=== PATIENT | female | born 1970 | race Caucasian/White ===

== ENCOUNTER 2016-06-25 11:33 | Emergency (ER) | payer MEDICAID ==
[~2016-06-25] VITALS: Ht 157.5 cm; Wt 75.0 kg
[~2016-06-25 11:33] MED LIST: AMIT25TA9 PO; ASPI-1035 PO; GABA-531 PO; GEMF600T3 PO; LEVO50TA8 PO; LIP40 PO; LORA0.5T2 PO; LOV40 SQ; METO25TA6 PO; WARF7.5T22 PO; [UNRECOGNIZED DRUG - CODE] PO
[2016-06-25 13:59] LABS: BG BASE EXCESS -5.2 mmol/L (-2.0-2.0); BG CARBOXYHEMOGLOBIN 0.5 % (0.5-1.5); BG DEOXYHEMOGLOBIN 1.9 % (0.0-5.0); BG FRACTION INSPIRED OXYGEN 21; BG HCO3 ACT 16.9 mmol/L (22.0-26.0); BG METHEMOGLOBIN 0.2 % (0.0-1.5); BG OXYGEN SATURATION 98.1 % (92.0-98.5); BG OXYHEMOGLOBIN 97.4 % (94.0-97.0); BG PCO2 24.2 mmHg (35.0-45.0); BG PH 7.463 (7.350-7.450); BG SAMPLE SITE RIGHT BRACHIAL; BG TOTAL HEMOGLOBIN 12.1 g/dL (12.0-18.0); BG VENT MODE ROOM AIR
[2016-06-25 14:28] LABS: BASOPHILS % 0.8 % (0.0-2.0); DIFFERENTIAL COMMENT 0; EOSINOPHILS % 2.5 % (0.0-5.0); HEMATOCRIT. 35.4 % (36.0-48.0); HEMOGLOBIN. 11.6 g/dL (12.0-16.0); LYMPHOCYTES % 26.2 % (20.0-50.0); MEAN CORPUSCULAR HEMOGLOBIN 24.3 pg (28.0-32.0); MEAN CORPUSCULAR HGB CONC 32.7 g/dL (31.0-37.0); MEAN CORPUSCULAR VOLUME 74.4 fL (81.0-99.0); MEAN PLATELET VOLUME 6.9 fl (7.4-10.4); MONOCYTES % 7.9 % (2.0-8.0); NEUTROPHILS % 62.6 % (40.0-76.0); PLATELET 371 x1000/uL (130-400); RED BLOOD CELL COUNT 4.76 mill/uL (4.2-5.4); RED CELL DISTRIBUTION WIDTH 16.2 % (11.6-14.6); WHITE BLOOD COUNT 6.4 x1000/uL (4.5-11.0)
[2016-06-25 14:39] LABS: HCG SCREEN NEGATIVE
[2016-06-25 14:42] LABS: ALANINE AMINOTRANSFERASE 55 IU/L (13-61); ALBUMIN 3.3 g/dL (3.4-5.0); ANION GAP 15; CALCIUM 8.1 mg/dL (8.5-10.1); CARBON DIOXIDE 21 mEq/L (21-32); CHLORIDE 110 mEq/L (98-107); ETHANOL BLOOD < 10 mg/dL; INDEX HEMOLYSI 2 (1-3); INDEX ICTERIC 1 (1-4); INDEX LIPEMIC 1 (1-3); UREA NITROGEN BLOOD 8 mg/dL (7-21); eGFR > 60 mL/min (>60)
[2016-06-25] MEDS ORDERED: ACETAMINOPHEN WITH CODEINE 300/30MG TABLET PO ONE (14:45)
[2016-06-25 14:56] LABS: GLUCOSE URINE NEGATIVE (NEGATIVE); KETONES URINE 1+ (NEGATIVE); LEUKOCYTE ESTERASE URINE 2+ (NEGATIVE); NITRITE URINE POSITIVE (NEGATIVE); OCCULT BLOOD URINE 3+ (NEGATIVE); PROTEIN URINE 2+ (NEGATIVE); SPECIFIC GRAVITY URINE 1.008 (1.005-1.030)
[2016-06-25 14:57] LABS: CLARITY URINE TURBID (CLEAR); COLOR URINE BLOODY (YELLOW)
[2016-06-25 14:58] LABS: RBC URINE TNTC /hpf (0-2)
[2016-06-25 14:59] LABS: BACTERIA URINE 1+; SQUAMOUS EPITHELIAL CELL URINE 1+ /lpf (RARE/1+)
[2016-06-25 15:20] LABS: *AMPHETAMINES SCREEN URINE NEGATIVE (NEGATIVE); *BARBITURATES SCREEN URINE NEGATIVE (NEGATIVE); *BENZODIAZEPINES SCREEN URINE NEGATIVE (NEGATIVE); *COCAINE SCREEN URINE NEGATIVE (NEGATIVE); CANNABINOID URINE SCREEN NEGATIVE (NEGATIVE); ECSTASY MDMA SCREEN URINE NEGATIVE (NEGATIVE); METHADONE URINE SCREEN NEGATIVE (NEGATIVE); OPIATES URINE SCREEN NEGATIVE (NEGATIVE); PHENCYCLIDINE URINE SCREEN NEGATIVE (NEGATIVE)
[2016-06-25] MEDS ORDERED: CEFTRIAXONE 1 G PREMIX 50 ML IV ONE (15:30)
[2016-06-25] MEDS ORDERED: SODIUM CHLORIDE 0.9% 1,000 ML IV ONE (15:30)
[2016-06-25] MEDS ORDERED: ACETAMINOPHEN 325MG TABLET PO ONE (17:15)
[2016-06-25 17:39] VITALS: BP 106/67
== END 2016-06-25 17:49 | disposition home or self-care (01) ==
LOC: ER 14:47
DX: N30.00 Acute cystitis without hematuria (principal); R51 Headache; Z88.6 Allergy status to analgesic agent; I10 Essential (primary) hypertension; Z86.711 Personal history of pulmonary embolism; Z79.01 Long term (current) use of anticoagulants; Z98.890 Other specified postprocedural states
CPT/HCPCS: 36415; 36600; 70450; 80053; 80305; 81001; 82375; 82805; 84703; 85025; 96365; 99285; G0482; J0696; J7030; Z7610

== ENCOUNTER 2016-09-03 16:53 | Emergency (ER) | payer MEDICAID ==
[~2016-09-03] VITALS: Ht 157.5 cm; Wt 76.0 kg
[~2016-09-03 16:53] MED LIST changes: -ASPI-1035 PO; -GEMF600T3 PO; -LEVO50TA8 PO; -LOV40 SQ; +TEMA15CA PO; +TOPI50TA21 PO; +WARF5TAB73 PO; -[UNRECOGNIZED DRUG - CODE] PO
[2016-09-03] MEDS ORDERED: SODIUM CHLORIDE 0.9% 1,000 ML IV ONE (17:32)
[2016-09-03] MEDS ORDERED: HYDROCODONE/ACETAMINOPHEN 5/325MG TABLET PO ONE (17:45)
[2016-09-03 18:07] LABS: BASOPHILS % 0.7 % (0.0-2.0); EOSINOPHILS % 2.3 % (0.0-5.0); HEMATOCRIT. 34.8 % (36.0-48.0); MEAN CORPUSCULAR HEMOGLOBIN 25.2 pg (28.0-32.0); MEAN CORPUSCULAR VOLUME 73.2 fL (81.0-99.0); MEAN PLATELET VOLUME 7.5 fl (7.4-10.4); MONOCYTES % 6.1 % (2.0-8.0); NEUTROPHILS % 61.9 % (40.0-76.0); PLATELET 384 x1000/uL (130-400); RED BLOOD CELL COUNT 4.75 mill/uL (4.2-5.4); RED CELL DISTRIBUTION WIDTH 18.3 % (11.6-14.6)
[2016-09-03 18:10] LABS: INR 2.3; PROTHROMBIN TIME 24.1 sec
[2016-09-03 18:19] LABS: CARBON DIOXIDE 22 mEq/L (21-32); CHLORIDE 105 mEq/L (98-107); TROPONIN I < 0.02 ng/mL (0.00-0.04)
[2016-09-03 18:22] LABS: HCG SCREEN NEGATIVE
[2016-09-03 18:31] LABS: CLARITY URINE CLEAR (CLEAR); COLOR URINE YELLOW (YELLOW); GLUCOSE URINE NEGATIVE (NEGATIVE); KETONES URINE NEGATIVE (NEGATIVE); LEUKOCYTE ESTERASE URINE TRACE (NEGATIVE); NITRITE URINE NEGATIVE (NEGATIVE); OCCULT BLOOD URINE NEGATIVE (NEGATIVE); PH URINE 7.5 (4.5-8.0); PROTEIN URINE NEGATIVE (NEGATIVE); SPECIFIC GRAVITY URINE 1.004 (1.005-1.030); UROBILINOGEN URINE 0.2 E.U./dL (0.2-1.0)
[2016-09-03] MEDS ORDERED: LORAZEPAM 2MG/ML CPJ IV ONE (19:00)
[2016-09-03 19:36] VITALS: BP 121/82
== END 2016-09-03 19:57 | disposition home or self-care (01) ==
LOC: ER 16:53
DX: F43.0 Acute stress reaction (principal); R07.89 Other chest pain; R00.0 Tachycardia, unspecified; G35 Multiple sclerosis; G47.00 Insomnia, unspecified; Z98.890 Other specified postprocedural states; Z79.01 Long term (current) use of anticoagulants; Z98.51 Tubal ligation status; Z86.711 Personal history of pulmonary embolism; Z86.73 Personal history of transient ischemic attack (TIA), and cerebral infarction without residual deficits
CPT/HCPCS: 36415; 71010; 80053; 81001; 81025; 84484; 84703; 85025; 85610; 93005; 96374; 99285; J2060; J7030; Z7610

== ENCOUNTER 2016-09-21 22:45 | Emergency (ER) | payer MEDICAID ==
[~2016-09-21] VITALS: Ht 157.5 cm; Wt 75.0 kg
[2016-09-21 22:56] VITALS: BP 143/78
== END 2016-09-21 23:53 | disposition left against medical advice (07) ==
LOC: ER 22:45
DX: R07.9 Chest pain, unspecified (principal); Z53.21 Procedure and treatment not carried out due to patient leaving prior to being seen by health care provider

== ENCOUNTER 2016-10-01 19:43 | Inpatient (IN) | payer MEDICAID ==
[~2016-10-01] VITALS: Ht 157.5 cm; Wt 77.1 kg
[~2016-10-01 19:43] MED LIST changes: +IOHEXOL-350 100 ML BOTTLE ONE; +SODIUM CHLORIDE 0.9% 10ML VIAL ONE
[2016-10-01] MEDS ORDERED: KETOROLAC 30MG/ML VIAL IV STA (20:43)
[2016-10-01] MEDS ORDERED: ACETAMINOPHEN WITH CODEINE 300/30MG TABLET PO ONE (21:15)
[2016-10-01 21:31] LABS: BASOPHILS % 0.7 % (0.0-2.0); HEMATOCRIT. 27.8 % (36.0-48.0); HEMOGLOBIN. 8.9 g/dL (12.0-16.0); LYMPHOCYTES % 32.3 % (20.0-50.0); MEAN CORPUSCULAR HEMOGLOBIN 22.8 pg (28.0-32.0); MEAN CORPUSCULAR VOLUME 71.1 fL (81.0-99.0); MEAN PLATELET VOLUME 6.7 fl (7.4-10.4); MONOCYTES % 10.4 % (2.0-8.0); NEUTROPHILS % 53.6 % (40.0-76.0); PLATELET 398 x1000/uL (130-400); RED BLOOD CELL COUNT 3.91 mill/uL (4.2-5.4); RED CELL DISTRIBUTION WIDTH 16.8 % (11.6-14.6)
[2016-10-01 21:36] LABS: INR 1.6; PROTHROMBIN TIME 17.1 sec
[2016-10-01 21:39] LABS: CARBON DIOXIDE 21 mEq/L (21-32); CHLORIDE 110 mEq/L (98-107)
[2016-10-01 21:42] LABS: TROPONIN I < 0.02 ng/mL (0.00-0.04)
[2016-10-01 22:52] LABS: HCG SCREEN NEGATIVE
[2016-10-01] MEDS ORDERED: ENOXAPARIN 80MG/0.8ML SYR SUBCUT ONE (23:15)
[2016-10-01] MEDS ORDERED: MORPHINE SULFATE 4 MG/ML CPJ (NOT FOR IM USE) IV ONE (23:15)
[2016-10-01] MEDS ORDERED: SODIUM CHLORIDE 0.9% 1,000 ML IV ONE (23:38)
[2016-10-02] MEDS ORDERED: ASPIRIN 325MG EC TABLET PO ONE (01:00)
[2016-10-02] MEDS ORDERED: DIPHENHYDRAMINE 50MG CAPSULE PO ONE (01:15)
[2016-10-02] MEDS ORDERED: DEXTROSE 50% WATER 50ML SYRINGE IV PRN (04:45)
[2016-10-02] MEDS: MORPHINE SULFATE 4 MG/ML CPJ (NOT FOR IM USE) IV PRN ×3 (04:58→22:18)
[2016-10-02] MEDS: ONDANSETRON HCL 4MG/2ML VIAL IV PRN ×3 (04:58→20:29)
[2016-10-02 06:00] LABS: BASOPHILS % 0.7 % (0.0-2.0); EOSINOPHILS % 4.4 % (0.0-5.0); HEMATOCRIT. 25.7 % (36.0-48.0); HEMOGLOBIN. 8.5 g/dL (12.0-16.0); LYMPHOCYTES % 47.7 % (20.0-50.0); MEAN CORPUSCULAR HEMOGLOBIN 23.6 pg (28.0-32.0); MEAN CORPUSCULAR VOLUME 71.4 fL (81.0-99.0); MEAN PLATELET VOLUME 6.9 fl (7.4-10.4); MONOCYTES % 9.1 % (2.0-8.0); NEUTROPHILS % 38.1 % (40.0-76.0); PLATELET 397 x1000/uL (130-400); RED BLOOD CELL COUNT 3.61 mill/uL (4.2-5.4)
[2016-10-02 06:07] LABS: CREATINE KINASE 77 IU/L (26-192); TROPONIN I < 0.02 ng/mL (0.00-0.04)
[2016-10-02] MEDS: INSULIN LISPRO 100 UNITS/ML SUBCUT SCH ×4 (08:20→20:44)
[2016-10-02] MEDS: BLOOD SUGAR DIAGNOSTIC STRIP TEST SCH ×3 (09:00→20:44)
[2016-10-02 12:50] VITALS: BP 108/73
[2016-10-02 14:00] VITALS: BP 130/75
[2016-10-02 16:00] VITALS: BP 121/71
[2016-10-02 16:03] LABS: CREATINE KINASE 74 IU/L (26-192); CREATINE KINASE MB FRACTION 0.8 ng/mL (0.5-3.6); TROPONIN I < 0.02 ng/mL (0.00-0.04)
[2016-10-02] MEDS ORDERED: WARFARIN SODIUM 7.5MG TABLET PO NR (18:00)
[2016-10-02 20:00] VITALS: BP 97/64
[2016-10-02] MEDS ORDERED: TRAMADOL 50MG TABLET PO PRN (21:00)
[2016-10-02] MEDS ORDERED: POTASSIUM CHLORIDE 20MEQ TABLET SR PO NR (21:00)
[2016-10-02] MEDS ORDERED: DIVA500T PO (22:30)
[2016-10-02] MEDS ORDERED: ATORVASTATIN CALCIUM 40MG TABLET PO SCH (22:45)
[2016-10-02] MEDS: GABAPENTIN 300MG CAPSULE PO SCH (23:28)
[2016-10-02] MEDS: DIVALPROEX SODIUM 500MG DR TABLET PO SCH (23:29)
[2016-10-02] MEDS: TOPIRAMATE 25MG TABLET PO SCH (23:35)
[2016-10-03] VITALS (7 sets, daily range): BP systolic 92–128; BP diastolic 49–82
[2016-10-03 06:16] LABS: INR 1.7; PROTHROMBIN TIME 18.3 sec
[2016-10-03] MEDS: BLOOD SUGAR DIAGNOSTIC STRIP TEST SCH ×2 (07:11→12:19)
[2016-10-03] MEDS: INSULIN LISPRO 100 UNITS/ML SUBCUT SCH ×2 (07:58→12:19)
[2016-10-03] MEDS: GABAPENTIN 300MG CAPSULE PO SCH ×2 (08:25→17:14)
[2016-10-03] MEDS: TOPIRAMATE 25MG TABLET PO SCH (08:25)
[2016-10-03] MEDS: DIVALPROEX SODIUM 500MG DR TABLET PO SCH ×2 (08:25→17:14)
[2016-10-03] MEDS: MORPHINE SULFATE 4 MG/ML CPJ (NOT FOR IM USE) IV PRN ×2 (09:41→15:31)
[2016-10-03] MEDS: ONDANSETRON HCL 4MG/2ML VIAL IV PRN (09:50)
[2016-10-03] MEDS ORDERED: WARFARIN SODIUM 5MG TABLET PO SCH (18:00)
[2016-10-03] MEDS ORDERED: AMITRIPTYLINE 25MG TABLET PO SCH (21:00)
[2016-10-03] MEDS ORDERED: TEMAZEPAM 15MG CAPSULE PO SCH (21:00)
== END 2016-10-03 18:10 | disposition home or self-care (01) | DRG 203 ==
LOC: ER 19:43 → EDBEDREQ 10-02 01:47 → EDBEDREQTM 10-02 01:47 → 7WST 10-02 01:49 → EDBEDREQ 10-02 01:53 → ENRESERV 10-02 12:07
PROVIDERS: ADMIT Hospitalist; ATTEND Hospitalist
DX: R07.89 Other chest pain (principal); I10 Essential (primary) hypertension; E11.9 Type 2 diabetes mellitus without complications; E78.5 Hyperlipidemia, unspecified; Z86.711 Personal history of pulmonary embolism; Z88.6 Allergy status to analgesic agent; Z98.51 Tubal ligation status
CPT/HCPCS: 36415; 70450; 71010; 80053; 80061; 82550; 82553; 82962; 83880; 84484; 84703; 85025; 85610; 93005; 96361; 96372; 96374; 99285; A4216; J1650; J1885; J2270; J2405; J7030; Q0163; Q9967

== ENCOUNTER 2016-10-23 18:22 | Emergency (ER) | payer MEDICAID ==
[~2016-10-23] VITALS: Ht 157.5 cm; Wt 76.0 kg
[~2016-10-23 18:22] MED LIST changes: +DIVA500T PO; -IOHEXOL-350 100 ML BOTTLE ONE; -SODIUM CHLORIDE 0.9% 10ML VIAL ONE
[2016-10-23 19:11] LABS: BASOPHILS % 0.7 % (0.0-2.0); EOSINOPHILS % 2.7 % (0.0-5.0); HEMATOCRIT. 29.5 % (36.0-48.0); HEMOGLOBIN. 9.4 g/dL (12.0-16.0); MEAN CORPUSCULAR HEMOGLOBIN 21.9 pg (28.0-32.0); MEAN CORPUSCULAR VOLUME 68.9 fL (81.0-99.0); MONOCYTES % 7.4 % (2.0-8.0); NEUTROPHILS % 54.2 % (40.0-76.0); PLATELET 425 x1000/uL (130-400); RED BLOOD CELL COUNT 4.28 mill/uL (4.2-5.4); RED CELL DISTRIBUTION WIDTH 16.6 % (11.6-14.6)
[2016-10-23 19:15] LABS: CHLORIDE 109 mEq/L (98-107); INR 2.7; PARTIAL THROMBOPLASTIN TIME 36.4 sec (24.0-34.0); PROTHROMBIN TIME 28.1 sec
[2016-10-23 19:21] LABS: CARBON DIOXIDE 20 mEq/L (21-32)
[2016-10-23 19:24] LABS: TROPONIN I < 0.02 ng/mL (0.00-0.04)
[2016-10-23 19:26] LABS: PLATELET ESTIMATE SLIGHTLY INCREASED
[2016-10-23] MEDS ORDERED: SODIUM CHLORIDE 0.9% 1,000 ML IV ONE (20:39)
[2016-10-23] MEDS ORDERED: ACETAMINOPHEN 325MG TABLET PO ONE (20:45)
[2016-10-23 21:09] LABS: UCG SCREEN NEGATIVE
[2016-10-23 21:19] LABS: *AMPHETAMINES SCREEN URINE NEGATIVE (NEGATIVE); *BARBITURATES SCREEN URINE NEGATIVE (NEGATIVE); *BENZODIAZEPINES SCREEN URINE NEGATIVE (NEGATIVE); *COCAINE SCREEN URINE NEGATIVE (NEGATIVE); CANNABINOID URINE SCREEN NEGATIVE (NEGATIVE); METHADONE URINE SCREEN NEGATIVE (NEGATIVE); PHENCYCLIDINE URINE SCREEN NEGATIVE (NEGATIVE)
[2016-10-23 21:28] LABS: OPIATES URINE SCREEN PRESUMTIVE POSITIVE (NEGATIVE)
[2016-10-24 01:00] VITALS: BP 142/60
== END 2016-10-24 01:15 | disposition home or self-care (01) ==
LOC: ER 21:16
DX: R51 Headache (principal); R00.2 Palpitations; G35 Multiple sclerosis; I10 Essential (primary) hypertension; E11.9 Type 2 diabetes mellitus without complications; Z98.51 Tubal ligation status; Z88.8 Allergy status to other drugs, medicaments and biological substances; Z86.711 Personal history of pulmonary embolism; Z79.01 Long term (current) use of anticoagulants
CPT/HCPCS: 36415; 70450; 71010; 80053; 80305; 81025; 83690; 84484; 85025; 85610; 85730; 93005; 96360; 96361; 99285; J7030

== ENCOUNTER 2016-11-25 18:30 | Emergency (ER) | payer MEDICAID ==
[~2016-11-25] VITALS: Ht 157.5 cm; Wt 75.0 kg
[~2016-11-25 18:30] MED LIST changes: -TOPI50TA21 PO; +TOPI50TA24 PO
[2016-11-25 19:03] VITALS: BP 113/68
[2017-01-22] MEDS ORDERED: WARF5TAB73 PO (05:52)
== END 2016-11-25 20:45 | disposition left against medical advice (07) ==
LOC: ER 18:30
DX: R00.2 Palpitations (principal); Z53.21 Procedure and treatment not carried out due to patient leaving prior to being seen by health care provider
CPT/HCPCS: 93005

== ENCOUNTER 2016-11-27 18:13 | Inpatient (IN) | payer MEDICAID ==
[~2016-11-27] VITALS: Ht 157.5 cm; Wt 79.4 kg
[2016-11-27] MEDS ORDERED: METO100T5 PO (18:25)
[2016-11-27] MEDS ORDERED: MORPHINE SULFATE 4 MG/ML CPJ (NOT FOR IM USE) IV ONE (19:45)
[2016-11-27 20:05] LABS: BG CARBOXYHEMOGLOBIN 0.1 % (0.5-1.5); BG DEOXYHEMOGLOBIN 3.3 % (0.0-5.0); BG FRACTION INSPIRED OXYGEN 21; BG HCO3 ACT 19.5 mmol/L (22.0-26.0); BG METHEMOGLOBIN 0.3 % (0.0-1.5); BG OXYGEN SATURATION 96.7 % (92.0-98.5); BG OXYHEMOGLOBIN 96.3 % (94.0-97.0); BG PCO2 29.9 mmHg (35.0-45.0); BG PH 7.433 (7.350-7.450); BG PO2 90.6 mmHg (75.0-100.0); BG SAMPLE SITE RIGHT RADIAL; BG VENT MODE ROOM AIR
[2016-11-27 20:29] LABS: EOSINOPHILS % 2.9 % (0.0-5.0); HEMATOCRIT. 26.9 % (36.0-48.0); HEMOGLOBIN. 8.4 g/dL (12.0-16.0); LYMPHOCYTES % 34.8 % (20.0-50.0); MEAN CORPUSCULAR HEMOGLOBIN 20.7 pg (28.0-32.0); MEAN CORPUSCULAR VOLUME 65.9 fL (81.0-99.0); MEAN PLATELET VOLUME 7.4 fl (7.4-10.4); NEUTROPHILS % 51.3 % (40.0-76.0); PLATELET 397 x1000/uL (130-400); RED BLOOD CELL COUNT 4.08 mill/uL (4.2-5.4); RED CELL DISTRIBUTION WIDTH 18.5 % (11.6-14.6)
[2016-11-27 20:30] LABS: CHLORIDE 108 mEq/L (98-107)
[2016-11-27] MEDS ORDERED: ONDANSETRON HCL 4MG/2ML VIAL IV ONE (20:30)
[2016-11-27 20:35] LABS: D-DIMER < 0.19 mg/L FEU (<0.50); INR 1.9; PROTHROMBIN TIME 20.1 sec (9.4-11.6)
[2016-11-27 20:36] LABS: CARBON DIOXIDE 22 mEq/L (21-32)
[2016-11-27 20:42] LABS: TROPONIN I < 0.02 ng/mL (0.00-0.04)
[2016-11-27] MEDS ORDERED: ASPIRIN 325MG EC TABLET PO ONE (21:00)
[2016-11-27 21:25] LABS: PLATELET ESTIMATE NORMAL
[2016-11-27 23:00] VITALS: BP 124/76
[2016-11-27 23:30] VITALS: BP 124/76
[2016-11-27] MEDS ORDERED: ACET-2178 PO (23:44)
[2016-11-28] MEDS: METOPROLOL TARTRATE 25MG TABLET PO SCH ×3 (00:15→18:23)
[2016-11-28] MEDS ORDERED: MAGNESIUM/ALUMINUM HYDROXIDE/SIMETHICONE 30ML UDC PO PRN (00:15)
[2016-11-28] MEDS ORDERED: MORPHINE SULFATE 2 MG/ML CPJ (NOT FOR IM USE) IV PRN (00:15)
[2016-11-28] MEDS ORDERED: ACETAMINOPHEN 325MG TABLET PO PRN (00:15)
[2016-11-28] MEDS ORDERED: CLONIDINE 0.1MG TABLET PO PRN (00:15)
[2016-11-28] MEDS ORDERED: LORAZEPAM 1MG TABLET PO PRN (00:15)
[2016-11-28] MEDS ORDERED: DEXTROSE 50% WATER 50ML SYRINGE IV PRN (00:15)
[2016-11-28] MEDS ORDERED: DOCUSATE SODIUM 100MG CAPSULE PO PRN (00:15)
[2016-11-28] MEDS: MORPHINE SULFATE 2 MG/ML CPJ (NOT FOR IM USE) IV PRN ×5 (00:34→20:28)
[2016-11-28] MEDS: ONDANSETRON HCL 4MG/2ML VIAL IV PRN ×2 (01:10→10:50)
[2016-11-28] MEDS: ATORVASTATIN CALCIUM 40MG TABLET PO SCH ×2 (01:11→20:19)
[2016-11-28] MEDS: TEMAZEPAM 15MG CAPSULE PO SCH ×2 (01:15→21:00)
[2016-11-28 04:00] VITALS: BP 108/67
[2016-11-28] MEDS: HYDROCODONE/ACETAMINOPHEN 10/325MG TABLET PO PRN ×2 (04:05→08:32)
[2016-11-28] MEDS: BLOOD SUGAR DIAGNOSTIC STRIP TEST SCH ×4 (06:14→20:18)
[2016-11-28] MEDS: INSULIN LISPRO 100 UNITS/ML SUBCUT SCH ×4 (06:14→20:18)
[2016-11-28 07:05] LABS: CLARITY URINE CLEAR (CLEAR); COLOR URINE YELLOW (YELLOW); GLUCOSE URINE NEGATIVE (NEGATIVE); KETONES URINE NEGATIVE (NEGATIVE); LEUKOCYTE ESTERASE URINE NEGATIVE (NEGATIVE); NITRITE URINE NEGATIVE (NEGATIVE); OCCULT BLOOD URINE NEGATIVE (NEGATIVE); PROTEIN URINE NEGATIVE (NEGATIVE); SPECIFIC GRAVITY URINE 1.013 (1.005-1.030); UROBILINOGEN URINE 0.2 E.U./dL (0.2-1.0)
[2016-11-28 07:13] LABS: *AMPHETAMINES SCREEN URINE NEGATIVE (NEGATIVE); *BARBITURATES SCREEN URINE NEGATIVE (NEGATIVE); *COCAINE SCREEN URINE NEGATIVE (NEGATIVE); CANNABINOID URINE SCREEN NEGATIVE (NEGATIVE); METHADONE URINE SCREEN NEGATIVE (NEGATIVE); PHENCYCLIDINE URINE SCREEN NEGATIVE (NEGATIVE)
[2016-11-28] MEDS ORDERED: INSULIN LISPRO 100 UNITS/ML SUBCUT SCH (07:15)
[2016-11-28 07:31] LABS: *BENZODIAZEPINES SCREEN URINE PRESUMTIVE POSITIVE (NEGATIVE); OPIATES URINE SCREEN PRESUMTIVE POSITIVE (NEGATIVE)
[2016-11-28 08:00] VITALS: BP 115/70
[2016-11-28 09:00] LABS: CREATINE KINASE 75 IU/L (26-192); TROPONIN I < 0.02 ng/mL (0.00-0.04)
[2016-11-28] MEDS: DIVALPROEX SODIUM 500MG DR TABLET PO SCH ×2 (09:09→18:23)
[2016-11-28] MEDS: GABAPENTIN 300MG CAPSULE PO SCH ×2 (09:09→18:23)
[2016-11-28 12:00] VITALS: BP 113/70
[2016-11-28 16:28] LABS: INR 2.1; PROTHROMBIN TIME 21.9 sec (9.4-11.6)
[2016-11-28 16:40] LABS: HCG SCREEN NEGATIVE
[2016-11-28 16:41] LABS: CREATINE KINASE 76 IU/L (26-192); TROPONIN I < 0.02 ng/mL (0.00-0.04)
[2016-11-28] MEDS ORDERED: WARFARIN SODIUM 5MG TABLET PO SCH (18:00)
[2016-11-28] MEDS ORDERED: WARFARIN SODIUM 5MG TABLET PO NR (18:00)
[2016-11-28 20:00] VITALS: BP 108/66
[2016-11-28] MEDS: AMITRIPTYLINE 25MG TABLET PO SCH (20:19)
[2016-11-29] VITALS: BP 100/58
[2016-11-29] MEDS: MORPHINE SULFATE 2 MG/ML CPJ (NOT FOR IM USE) IV PRN ×4 (00:45→18:25)
[2016-11-29 04:00] VITALS: BP 101/58
[2016-11-29] MEDS: METOPROLOL TARTRATE 25MG TABLET PO SCH ×2 (06:00→18:24)
[2016-11-29] MEDS: BLOOD SUGAR DIAGNOSTIC STRIP TEST SCH ×4 (06:01→20:17)
[2016-11-29] MEDS: INSULIN LISPRO 100 UNITS/ML SUBCUT SCH ×4 (06:11→20:17)
[2016-11-29 06:40] LABS: INR 2.3; PROTHROMBIN TIME 23.4 sec (9.4-11.6)
[2016-11-29 07:07] LABS: BASOPHILS % 0.7 % (0.0-2.0); EOSINOPHILS % 4.9 % (0.0-5.0); HEMATOCRIT. 26.6 % (36.0-48.0); HEMOGLOBIN. 8.3 g/dL (12.0-16.0); LYMPHOCYTES % 36.3 % (20.0-50.0); MEAN CORPUSCULAR HEMOGLOBIN 20.9 pg (28.0-32.0); MEAN CORPUSCULAR VOLUME 66.8 fL (81.0-99.0); MEAN PLATELET VOLUME 7.2 fl (7.4-10.4); MONOCYTES % 9.5 % (2.0-8.0); NEUTROPHILS % 48.6 % (40.0-76.0); PLATELET 371 x1000/uL (130-400); RED BLOOD CELL COUNT 3.99 mill/uL (4.2-5.4); RED CELL DISTRIBUTION WIDTH 18.1 % (11.6-14.6)
[2016-11-29 07:49] LABS: CARBON DIOXIDE 23 mEq/L (21-32); CHLORIDE 108 mEq/L (98-107); LDL CHOLESTEROL 107 mg/dL (5-100)
[2016-11-29 07:59] LABS: HDL CHOLESTEROL 36 mg/dL (40-59)
[2016-11-29 08:00] VITALS: BP 115/69
[2016-11-29 08:38] LABS: BG BASE EXCESS -3.5 mmol/L (-2.0-2.0); BG CARBOXYHEMOGLOBIN 0.4 % (0.5-1.5); BG FRACTION INSPIRED OXYGEN 21; BG HCO3 ACT 20.6 mmol/L (22.0-26.0); BG METHEMOGLOBIN 0.2 % (0.0-1.5); BG OXYHEMOGLOBIN 95.4 % (94.0-97.0); BG PCO2 33.7 mmHg (35.0-45.0); BG PH 7.405 (7.350-7.450); BG PO2 85.3 mmHg (75.0-100.0); BG SAMPLE SITE RIGHT RADIAL; BG TOTAL HEMOGLOBIN 9.3 g/dL (12.0-18.0); BG VENT MODE ROOM AIR
[2016-11-29] MEDS: DIVALPROEX SODIUM 500MG DR TABLET PO SCH ×2 (08:59→17:46)
[2016-11-29] MEDS: GABAPENTIN 300MG CAPSULE PO SCH ×2 (08:59→17:46)
[2016-11-29 12:00] VITALS: BP 105/70
[2016-11-29] MEDS ORDERED: METOCLOPRAMIDE HCL 10MG TABLET PO SCH (13:15)
[2016-11-29] MEDS ORDERED: DIPHENHYDRAMINE 25MG CAPSULE PO SCH (13:15)
[2016-11-29] MEDS ORDERED: INDOMETHACIN 50MG CAPSULE PO SCH (14:00)
[2016-11-29 16:00] VITALS: BP 122/70
[2016-11-29] MEDS ORDERED: WARFARIN SODIUM 7.5MG TABLET PO SCH (18:00)
[2016-11-29 20:00] VITALS: BP 105/57
[2016-11-29] MEDS: ATORVASTATIN CALCIUM 40MG TABLET PO SCH (20:12)
[2016-11-29] MEDS: TEMAZEPAM 15MG CAPSULE PO SCH (20:12)
[2016-11-29] MEDS: AMITRIPTYLINE 25MG TABLET PO SCH (20:12)
[2016-11-29] MEDS ORDERED: ATORVASTATIN CALCIUM 20MG TABLET PO SCH (21:00)
[2016-11-30] VITALS: BP 108/47
[2016-11-30] MEDS: ONDANSETRON HCL 4MG/2ML VIAL IV PRN (00:18)
[2016-11-30] MEDS: MORPHINE SULFATE 2 MG/ML CPJ (NOT FOR IM USE) IV PRN ×3 (01:15→10:10)
[2016-11-30 04:00] VITALS: BP 97/56
[2016-11-30] MEDS: METOPROLOL TARTRATE 25MG TABLET PO SCH (05:06)
[2016-11-30 05:35] LABS: INR 2.6; PROTHROMBIN TIME 26.9 sec (9.4-11.6)
[2016-11-30] MEDS: INSULIN LISPRO 100 UNITS/ML SUBCUT SCH ×2 (06:33→12:15)
[2016-11-30] MEDS: BLOOD SUGAR DIAGNOSTIC STRIP TEST SCH ×2 (06:33→12:03)
[2016-11-30 08:00] VITALS: BP 98/59
[2016-11-30] MEDS: GABAPENTIN 300MG CAPSULE PO SCH (09:37)
[2016-11-30] MEDS: DIVALPROEX SODIUM 500MG DR TABLET PO SCH (09:37)
[2016-11-30 10:48] LABS: HEMATOCRIT 27.2 % (36.0-48.0); HEMOGLOBIN 8.3 g/dL (12.0-16.0); MEAN CORPUSCULAR HEMOGLOBIN 20.4 pg (28.0-32.0); MEAN CORPUSCULAR VOLUME 66.7 fL (81.0-99.0); PLATELET 363 x1000/uL (130-400); RED BLOOD CELL COUNT 4.08 mill/uL (4.2-5.4); RED CELL DISTRIBUTION WIDTH 18.5 % (11.6-14.6)
[2016-11-30 10:59] LABS: CARBON DIOXIDE 22 mEq/L (21-32); CHLORIDE 108 mEq/L (98-107)
[2016-11-30 12:00] VITALS: BP 106/57
[2016-11-30] MEDS ORDERED: HYDROMORPHONE HCL/PF 2MG/ML CPJ IV NR (12:45)
[2016-11-30 16:00] VITALS: BP 121/75
[2016-11-30 16:05] VITALS: BP 121/75
[2017-01-22] MEDS ORDERED: WARF5TAB73 PO (05:52)
== END 2016-11-30 16:40 | disposition home or self-care (01) | DRG 203 ==
LOC: ER 21:15 → 5WST 21:16 → ENRESERV 21:29 → 5WST 23:07
PROVIDERS: ADMIT Internal Medicine; ATTEND Internal Medicine
DX: M94.0 Chondrocostal junction syndrome [Tietze] (principal); G35 Multiple sclerosis; I10 Essential (primary) hypertension; D64.9 Anemia, unspecified; E11.9 Type 2 diabetes mellitus without complications; G43.909 Migraine, unspecified, not intractable, without status migrainosus; F41.9 Anxiety disorder, unspecified; R00.2 Palpitations; I34.1 Nonrheumatic mitral (valve) prolapse; Z82.49 Family history of ischemic heart disease and other diseases of the circulatory system; Z79.01 Long term (current) use of anticoagulants; Z86.711 Personal history of pulmonary embolism; Z86.73 Personal history of transient ischemic attack (TIA), and cerebral infarction without residual deficits; Z88.8 Allergy status to other drugs, medicaments and biological substances; Z98.51 Tubal ligation status
CPT/HCPCS: 36415; 36600; 70450; 71010; 74176; 78582; 80053; 80061; 80305; 81003; 82270; 82375; 82550; 82805; 82962; 83880; 84443; 84484; 84703; 85025; 85027; 85379; 85610; 87493; 93005; 93970; 96374; 96375; 99285; A9558; J1170; J2270; J2405; J8597; Q0163

== ENCOUNTER 2016-12-09 23:00 | Emergency (ER) | payer MEDICAID ==
[~2016-12-09] VITALS: Ht 157.5 cm; Wt 75.0 kg
[~2016-12-09 23:00] MED LIST changes: +ACET-2178 PO; +METO100T5 PO; -METO25TA6 PO
[2016-12-10 00:51] LABS: BASOPHILS % 0.9 % (0.0-2.0); EOSINOPHILS % 3.4 % (0.0-5.0); HEMOGLOBIN. 8.7 g/dL (12.0-16.0); LYMPHOCYTES % 40.5 % (20.0-50.0); MEAN CORPUSCULAR HEMOGLOBIN 20.4 pg (28.0-32.0); MEAN CORPUSCULAR VOLUME 65.7 fL (81.0-99.0); MEAN PLATELET VOLUME 6.7 fl (7.4-10.4); MONOCYTES % 10.7 % (2.0-8.0); NEUTROPHILS % 44.5 % (40.0-76.0); PLATELET 474 x1000/uL (130-400); RED BLOOD CELL COUNT 4.26 mill/uL (4.2-5.4); RED CELL DISTRIBUTION WIDTH 19.3 % (11.6-14.6)
[2016-12-10 00:55] LABS: PROTHROMBIN TIME 10.7 sec (9.4-11.6)
[2016-12-10 01:00] LABS: CARBON DIOXIDE 23 mEq/L (21-32); CHLORIDE 107 mEq/L (98-107); TROPONIN I < 0.02 ng/mL (0.00-0.04)
[2016-12-10 02:25] VITALS: BP 126/75
[2016-12-10] MEDS ORDERED: ACETAMINOPHEN WITH CODEINE 300/30MG TABLET PO ONE (03:30)
[2017-01-22] MEDS ORDERED: WARF5TAB73 PO (05:52)
== END 2016-12-10 04:15 | disposition home or self-care (01) ==
LOC: ER 23:00
DX: R10.31 Right lower quadrant pain (principal); R10.32 Left lower quadrant pain; R07.89 Other chest pain; R00.2 Palpitations; R11.0 Nausea; G35 Multiple sclerosis; E11.9 Type 2 diabetes mellitus without complications; I10 Essential (primary) hypertension; Z86.73 Personal history of transient ischemic attack (TIA), and cerebral infarction without residual deficits; Z79.01 Long term (current) use of anticoagulants; Z86.711 Personal history of pulmonary embolism
CPT/HCPCS: 36415; 71010; 74176; 80053; 83690; 84484; 85025; 85610; 93005; 99285; Z7610

== ENCOUNTER 2016-12-12 18:17 | Emergency (ER) | payer MEDICAID ==
[~2016-12-12] VITALS: Ht 157.5 cm; Wt 75.0 kg
[2016-12-12 18:50] LABS: BASOPHILS % 0.5 % (0.0-2.0); EOSINOPHILS % 0.7 % (0.0-5.0); HEMATOCRIT. 24.9 % (36.0-48.0); HEMOGLOBIN. 7.9 g/dL (12.0-16.0); LYMPHOCYTES % 32.6 % (20.0-50.0); MEAN CORPUSCULAR HEMOGLOBIN 20.7 pg (28.0-32.0); MEAN CORPUSCULAR VOLUME 65.5 fL (81.0-99.0); MEAN PLATELET VOLUME 6.9 fl (7.4-10.4); NEUTROPHILS % 60.2 % (40.0-76.0); PLATELET 505 x1000/uL (130-400); RED BLOOD CELL COUNT 3.79 mill/uL (4.2-5.4); RED CELL DISTRIBUTION WIDTH 19.3 % (11.6-14.6)
[2016-12-12 19:01] LABS: HCG SCREEN NEGATIVE
[2016-12-12 19:03] LABS: CARBON DIOXIDE 22 mEq/L (21-32); CHLORIDE 111 mEq/L (98-107)
[2016-12-12 19:05] LABS: INR 1.6; PARTIAL THROMBOPLASTIN TIME 26.8 sec (23.4-31.0)
[2016-12-12 19:08] LABS: TROPONIN I < 0.02 ng/mL (0.00-0.04)
[2016-12-12 19:11] LABS: PLATELET ESTIMATE INCREASED
[2016-12-12] MEDS ORDERED: POTASSIUM CHLORIDE 20MEQ TABLET SR PO ONE (20:45)
[2016-12-12] MEDS ORDERED: LORAZEPAM 0.5MG TABLET PO ONE (21:00)
[2016-12-12] MEDS ORDERED: ACETAMINOPHEN WITH CODEINE 300/30MG TABLET PO ONE (21:00)
[2016-12-12 21:20] VITALS: BP 128/79
[2017-01-22] MEDS ORDERED: WARF5TAB73 PO (05:52)
== END 2016-12-12 21:24 | disposition home or self-care (01) ==
LOC: ER 18:31
DX: R07.9 Chest pain, unspecified (principal); R00.2 Palpitations; G89.29 Other chronic pain; F41.9 Anxiety disorder, unspecified; E87.8 Other disorders of electrolyte and fluid balance, not elsewhere classified; E11.9 Type 2 diabetes mellitus without complications; I10 Essential (primary) hypertension; Z88.6 Allergy status to analgesic agent; Z79.01 Long term (current) use of anticoagulants; Z86.73 Personal history of transient ischemic attack (TIA), and cerebral infarction without residual deficits; Z86.711 Personal history of pulmonary embolism; Z98.51 Tubal ligation status
CPT/HCPCS: 36415; 71010; 80053; 83690; 83880; 84484; 84703; 85025; 85610; 85730; 93005; 99285

== ENCOUNTER 2016-12-24 01:00 | Inpatient (IN) | payer MEDICAID ==
[~2016-12-24] VITALS: Ht 157.5 cm; Wt 77.1 kg
[2016-12-24] MEDS ORDERED: MORPHINE SULFATE 4 MG/ML CPJ (NOT FOR IM USE) IV STA (03:39)
[2016-12-24] MEDS ORDERED: SODIUM CHLORIDE 0.9% 1,000 ML IV ONE (03:39)
[2016-12-24] MEDS ORDERED: FAMOTIDINE 20MG/2ML VIAL IV STA (03:39)
[2016-12-24] MEDS ORDERED: ONDANSETRON HCL 4MG/2ML VIAL IV STA (03:39)
[2016-12-24 03:59] LABS: EOSINOPHILS % 2.4 % (0.0-5.0); HEMATOCRIT. 25.2 % (36.0-48.0); HEMOGLOBIN. 7.8 g/dL (12.0-16.0); LYMPHOCYTES % 30.3 % (20.0-50.0); MEAN CORPUSCULAR VOLUME 64.7 fL (81.0-99.0); MEAN PLATELET VOLUME 6.7 fl (7.4-10.4); MONOCYTES % 9.1 % (2.0-8.0); NEUTROPHILS % 57.2 % (40.0-76.0); PLATELET 370 x1000/uL (130-400); RED BLOOD CELL COUNT 3.89 mill/uL (4.2-5.4); RED CELL DISTRIBUTION WIDTH 19.4 % (11.6-14.6)
[2016-12-24 04:07] LABS: D-DIMER < 0.19 mg/L FEU (<0.50); INR 2.5; PROTHROMBIN TIME 25.7 sec (9.4-11.6)
[2016-12-24 04:15] LABS: CHLORIDE 111 mEq/L (98-107); HCG SCREEN INDETERMINATE; TROPONIN I < 0.02 ng/mL (0.00-0.04)
[2016-12-24 04:19] LABS: CARBON DIOXIDE 18 mEq/L (21-32)
[2016-12-24] MEDS ORDERED: ONDANSETRON HCL 4MG/2ML VIAL IV ONE (08:45)
[2016-12-24] MEDS ORDERED: METRONIDAZOLE 500 MG PREMIX 100 ML IV ONE (08:45)
[2016-12-24] MEDS ORDERED: PIPERACILLIN/TAZ 3.375G PREMIX 50 ML IV ONE (08:45)
[2016-12-24] MEDS ORDERED: MORPHINE SULFATE 4 MG/ML CPJ (NOT FOR IM USE) IV ONE (08:45)
[2016-12-24 11:20] VITALS: BP 126/66
[2016-12-24 12:00] VITALS: BP 129/66
[2016-12-24] MEDS ORDERED: METO25TA6 PO (12:53)
[2016-12-24] MEDS ORDERED: DEXT 5%/0.45% NACL KCL 10MEQ/L 1,000 ML IV SCH (15:11)
[2016-12-24] MEDS ORDERED: ACETAMINOPHEN 650MG SUPP PR PRN (15:15)
[2016-12-24] MEDS: ONDANSETRON HCL 4MG/2ML VIAL IV PRN (15:32)
[2016-12-24 16:00] VITALS: BP 119/71
[2016-12-24] MEDS ORDERED: LEVOFLOXACIN 500MG PREMIX 100 ML IV SCH (16:00)
[2016-12-24] MEDS ORDERED: DEXTROSE 50% WATER 50ML SYRINGE IV PRN (16:00)
[2016-12-24] MEDS: MORPHINE SULFATE 4 MG/ML CPJ (NOT FOR IM USE) IV PRN ×2 (16:44→22:44)
[2016-12-24] MEDS: INSULIN LISPRO 100 UNITS/ML SUBCUT SCH ×2 (16:53→21:00)
[2016-12-24] MEDS: BLOOD SUGAR DIAGNOSTIC STRIP TEST SCH ×2 (16:53→21:00)
[2016-12-24 20:00] VITALS: BP 117/77
[2016-12-24] MEDS: METRONIDAZOLE 500 MG PREMIX 100 ML IV SCH (23:42)
[2016-12-25] VITALS: BP 99/54
[2016-12-25 04:00] VITALS: BP 105/66
[2016-12-25] MEDS: METRONIDAZOLE 500 MG PREMIX 100 ML IV SCH (05:33)
[2016-12-25] MEDS: BLOOD SUGAR DIAGNOSTIC STRIP TEST SCH ×2 (05:38→11:42)
[2016-12-25] MEDS: INSULIN LISPRO 100 UNITS/ML SUBCUT SCH ×2 (05:39→11:42)
[2016-12-25 06:08] LABS: BASOPHILS % 0.7 % (0.0-2.0); EOSINOPHILS % 3.5 % (0.0-5.0); HEMATOCRIT. 24.7 % (36.0-48.0); HEMOGLOBIN. 7.9 g/dL (12.0-16.0); LYMPHOCYTES % 27.4 % (20.0-50.0); MEAN CORPUSCULAR HEMOGLOBIN 20.8 pg (28.0-32.0); MEAN CORPUSCULAR VOLUME 64.7 fL (81.0-99.0); NEUTROPHILS % 60.4 % (40.0-76.0); PLATELET 366 x1000/uL (130-400); RED BLOOD CELL COUNT 3.81 mill/uL (4.2-5.4); RED CELL DISTRIBUTION WIDTH 19.8 % (11.6-14.6)
[2016-12-25 06:50] LABS: CARBON DIOXIDE 21 mEq/L (21-32); CHLORIDE 110 mEq/L (98-107)
[2016-12-25 08:00] VITALS: BP 121/71
[2016-12-25] MEDS: ONDANSETRON HCL 4MG/2ML VIAL IV PRN (09:19)
[2016-12-25] MEDS: MORPHINE SULFATE 4 MG/ML CPJ (NOT FOR IM USE) IV PRN (09:20)
[2016-12-25 12:00] VITALS: BP 111/59
[2016-12-25 14:30] VITALS: BP 111/59
[2017-01-22] MEDS ORDERED: WARF5TAB73 PO (05:52)
== END 2016-12-25 15:30 | disposition home or self-care (01) | DRG 249 ==
LOC: ER 01:00 → 5WST 08:37 → ENRESERV 08:55
PROVIDERS: ADMIT Hospitalist; ATTEND Hospitalist
DX: K52.9 Noninfective gastroenteritis and colitis, unspecified (principal); E44.1 Mild protein-calorie malnutrition; I10 Essential (primary) hypertension; E83.51 Hypocalcemia; E11.9 Type 2 diabetes mellitus without complications; Z88.8 Allergy status to other drugs, medicaments and biological substances; Z79.899 Other long term (current) drug therapy; Z98.51 Tubal ligation status; Z82.49 Family history of ischemic heart disease and other diseases of the circulatory system
CPT/HCPCS: 36415; 71010; 74176; 80053; 82962; 83605; 83690; 83880; 84484; 84702; 84703; 85025; 85379; 85610; 86850; 86900; 86920; 87040; 93005; 93970; 96361; 96365; 96367; 96372; 96375; 99285; J1956; J2270; J2405; J2543; J3490; J7030; J7050

== ENCOUNTER 2017-01-07 19:52 | Emergency (ER) | payer MEDICAID ==
[~2017-01-07] VITALS: Ht 157.5 cm; Wt 75.0 kg
[~2017-01-07 19:52] MED LIST changes: -METO100T5 PO; +METO25TA6 PO
[2017-01-07 21:02] LABS: BASOPHILS % 0.9 % (0.0-2.0); EOSINOPHILS % 3.6 % (0.0-5.0); HEMATOCRIT. 28.1 % (36.0-48.0); LYMPHOCYTES % 36.9 % (20.0-50.0); MEAN CORPUSCULAR HEMOGLOBIN 21.1 pg (28.0-32.0); MEAN CORPUSCULAR VOLUME 65.9 fL (81.0-99.0); MEAN PLATELET VOLUME 6.6 fl (7.4-10.4); MONOCYTES % 10.3 % (2.0-8.0); NEUTROPHILS % 48.3 % (40.0-76.0); PLATELET 394 x1000/uL (130-400); RED BLOOD CELL COUNT 4.26 mill/uL (4.2-5.4); RED CELL DISTRIBUTION WIDTH 23.5 % (11.6-14.6)
[2017-01-07 21:09] LABS: INR 2.2; PROTHROMBIN TIME 23.3 sec (9.4-11.6)
[2017-01-07 21:21] LABS: CARBON DIOXIDE 21 mEq/L (21-32); CHLORIDE 109 mEq/L (98-107); ETHANOL BLOOD < 10 mg/dL; TROPONIN I < 0.02 ng/mL (0.00-0.04)
[2017-01-07] MEDS: MORPHINE SULFATE 4 MG/ML CPJ (NOT FOR IM USE) IV STA (21:31)
[2017-01-07] MEDS: SODIUM CHLORIDE 0.9% 1,000 ML IV ONE (21:32)
[2017-01-07] MEDS: ONDANSETRON HCL 4MG/2ML VIAL IV STA (21:32)
[2017-01-07] MEDS: MAGNESIUM/ALUMINUM HYDROXIDE/SIMETHICONE 30ML UDC PO ONE (21:39)
[2017-01-07] MEDS: FAMOTIDINE 20MG/2ML VIAL IV ONE (21:39)
[2017-01-07 21:53] LABS: CLARITY URINE CLEAR (CLEAR); COLOR URINE YELLOW (YELLOW); GLUCOSE URINE NEGATIVE (NEGATIVE); KETONES URINE NEGATIVE (NEGATIVE); LEUKOCYTE ESTERASE URINE 1+ (NEGATIVE); NITRITE URINE NEGATIVE (NEGATIVE); OCCULT BLOOD URINE NEGATIVE (NEGATIVE); PROTEIN URINE NEGATIVE (NEGATIVE); SPECIFIC GRAVITY URINE 1.005 (1.005-1.030); UROBILINOGEN URINE 0.2 E.U./dL (0.2-1.0)
[2017-01-07 22:04] LABS: PLATELET ESTIMATE NORMAL
[2017-01-07 22:11] LABS: *AMPHETAMINES SCREEN URINE NEGATIVE (NEGATIVE); *BARBITURATES SCREEN URINE NEGATIVE (NEGATIVE); *BENZODIAZEPINES SCREEN URINE NEGATIVE (NEGATIVE); *COCAINE SCREEN URINE NEGATIVE (NEGATIVE); CANNABINOID URINE SCREEN NEGATIVE (NEGATIVE); METHADONE URINE SCREEN NEGATIVE (NEGATIVE); OPIATES URINE SCREEN NEGATIVE (NEGATIVE); PHENCYCLIDINE URINE SCREEN NEGATIVE (NEGATIVE)
[2017-01-07 23:52] VITALS: BP 127/88
[2017-01-22] MEDS ORDERED: WARF5TAB73 PO (05:52)
== END 2017-01-07 23:52 | disposition home or self-care (01) ==
LOC: ER 19:52
DX: K29.70 Gastritis, unspecified, without bleeding (principal); D64.9 Anemia, unspecified; N39.0 Urinary tract infection, site not specified; I10 Essential (primary) hypertension; Z98.890 Other specified postprocedural states; Z98.51 Tubal ligation status; Z79.01 Long term (current) use of anticoagulants
CPT/HCPCS: 36415; 71010; 80053; 80305; 81001; 83690; 83880; 84484; 85025; 85610; 93005; 96361; 96374; 96375; 99285; G0482; J2270; J2405; J3490; J7030; Z7610

== ENCOUNTER 2017-01-13 21:06 | Observation (INO) | payer MEDICAID ==
[~2017-01-13] VITALS: Ht 157.5 cm; Wt 76.2 kg
[2017-01-13] MEDS ORDERED: METHYLPREDNISOLONE SOD SUCC 125 MG/2 ML VIAL IV ONE (22:15)
[2017-01-13 22:42] LABS: BASOPHILS % 0.3 % (0.0-2.0); EOSINOPHILS % 4.1 % (0.0-5.0); HEMATOCRIT. 29.3 % (36.0-48.0); HEMOGLOBIN. 9.3 g/dL (12.0-16.0); LYMPHOCYTES % 33.7 % (20.0-50.0); MEAN CORPUSCULAR HEMOGLOBIN 21.6 pg (28.0-32.0); MEAN CORPUSCULAR VOLUME 67.8 fL (81.0-99.0); MEAN PLATELET VOLUME 6.9 fl (7.4-10.4); MONOCYTES % 11.8 % (2.0-8.0); NEUTROPHILS % 50.1 % (40.0-76.0); PLATELET 391 x1000/uL (130-400); RED BLOOD CELL COUNT 4.32 mill/uL (4.2-5.4)
[2017-01-13 22:46] LABS: CLARITY URINE CLOUDY (CLEAR); COLOR URINE YELLOW (YELLOW); GLUCOSE URINE NEGATIVE (NEGATIVE); KETONES URINE NEGATIVE (NEGATIVE); LEUKOCYTE ESTERASE URINE 3+ (NEGATIVE); NITRITE URINE NEGATIVE (NEGATIVE); OCCULT BLOOD URINE 3+ (NEGATIVE); PROTEIN URINE NEGATIVE (NEGATIVE); UROBILINOGEN URINE 0.2 E.U./dL (0.2-1.0)
[2017-01-13 22:47] LABS: INR 1.1; PROTHROMBIN TIME 11.4 sec (9.4-11.6)
[2017-01-13 22:56] LABS: CARBON DIOXIDE 24 mEq/L (21-32); CHLORIDE 109 mEq/L (98-107); CREATINE KINASE 67 IU/L (26-192); ETHANOL BLOOD < 10 mg/dL; TROPONIN I < 0.02 ng/mL (0.00-0.04)
[2017-01-13 22:58] LABS: *AMPHETAMINES SCREEN URINE NEGATIVE (NEGATIVE); *BARBITURATES SCREEN URINE NEGATIVE (NEGATIVE); *BENZODIAZEPINES SCREEN URINE NEGATIVE (NEGATIVE); *COCAINE SCREEN URINE NEGATIVE (NEGATIVE); CANNABINOID URINE SCREEN NEGATIVE (NEGATIVE); METHADONE URINE SCREEN NEGATIVE (NEGATIVE); PHENCYCLIDINE URINE SCREEN NEGATIVE (NEGATIVE)
[2017-01-13 23:05] LABS: OPIATES URINE SCREEN PRESUMTIVE POSITIVE (NEGATIVE)
[2017-01-13 23:26] LABS: PLATELET ESTIMATE NORMAL
[2017-01-13] MEDS ORDERED: CEFTRIAXONE 1 G PREMIX 50 ML IV ONE (23:30)
[2017-01-13] MEDS ORDERED: POTASSIUM CHLORIDE 20MEQ TABLET SR PO ONE (23:30)
[2017-01-14] VITALS (7 sets, daily range): BP systolic 100–123; BP diastolic 58–77
[2017-01-14] MEDS ORDERED: TRAM50TA3 PO (00:58)
[2017-01-14] MEDS ORDERED: ACETAMINOPHEN 325MG TABLET PO PRN ×2 (03:00)
[2017-01-14] MEDS ORDERED: TRAMADOL 50MG TABLET PO PRN (03:00)
[2017-01-14] MEDS ORDERED: ONDANSETRON HCL 4MG/2ML VIAL IV PRN (03:00)
[2017-01-14] MEDS ORDERED: CLONIDINE 0.1MG TABLET PO PRN (03:00)
[2017-01-14] MEDS ORDERED: MAGNESIUM/ALUMINUM HYDROXIDE/SIMETHICONE 30ML UDC PO PRN (03:00)
[2017-01-14] MEDS ORDERED: LORAZEPAM 0.5MG TABLET PO PRN (03:00)
[2017-01-14] MEDS: SODIUM CHLORIDE 0.9% INJ 3ML FLUSH IVF SCH ×2 (05:48→11:12)
[2017-01-14] MEDS: DIPHENHYDRAMINE 50MG/ML VIAL IV PRN ×2 (05:48→11:12)
[2017-01-14] MEDS ORDERED: GABAPENTIN 300MG CAPSULE PO SCH (09:00)
[2017-01-14] MEDS ORDERED: METOPROLOL TARTRATE 25MG TABLET PO SCH ×2 (09:00)
[2017-01-14] MEDS ORDERED: GABA300C PO (16:22)
[2017-01-14] MEDS ORDERED: AMIT25TA9 PO (16:22)
[2017-01-14] MEDS ORDERED: AMITRIPTYLINE 25MG TABLET PO SCH (21:00)
[2017-01-14] MEDS ORDERED: TEMAZEPAM 15MG CAPSULE PO SCH (21:00)
[2017-01-14] MEDS ORDERED: ATORVASTATIN CALCIUM 40MG TABLET PO SCH (21:00)
[2017-01-22] MEDS ORDERED: WARF5TAB73 PO (05:52)
== END 2017-01-14 16:51 | disposition home or self-care (01) ==
LOC: ER 21:59 → INTOOBSV 23:26 → 5WST 23:26 → EDBEDREQTM 23:28 → EDBEDREQ 23:28 → ENRESERV 23:33
PROVIDERS: ADMIT Internal Medicine; ATTEND Internal Medicine
DX: G43.909 Migraine, unspecified, not intractable, without status migrainosus (principal); F43.10 Post-traumatic stress disorder, unspecified; F41.9 Anxiety disorder, unspecified; G35 Multiple sclerosis; I10 Essential (primary) hypertension; E87.6 Hypokalemia; Z79.01 Long term (current) use of anticoagulants; Z86.73 Personal history of transient ischemic attack (TIA), and cerebral infarction without residual deficits; Z86.711 Personal history of pulmonary embolism
CPT/HCPCS: 36415; 70450; 71010; 80053; 80305; 81001; 82550; 84484; 85025; 85610; 96365; 96375; 96376; 99285; G0378; G0482; J0696; J1200; J2930; 96374

== ENCOUNTER 2017-02-12 22:16 | Emergency (ER) | payer MEDICAID ==
[~2017-02-12] VITALS: Ht 157.5 cm; Wt 74.0 kg
[~2017-02-12 22:16] MED LIST changes: -GABA-531 PO; +GABA300C PO; +TRAM50TA3 PO; -WARF5TAB73 PO; -WARF7.5T22 PO
[2017-02-12 23:45] LABS: BASOPHILS % 0.8 % (0.0-2.0); EOSINOPHILS % 2.9 % (0.0-5.0); HEMATOCRIT. 28.3 % (36.0-48.0); HEMOGLOBIN. 9.2 g/dL (12.0-16.0); LYMPHOCYTES % 41.4 % (20.0-50.0); MEAN CORPUSCULAR HEMOGLOBIN 22.3 pg (28.0-32.0); MEAN CORPUSCULAR VOLUME 68.8 fL (81.0-99.0); MEAN PLATELET VOLUME 6.7 fl (7.4-10.4); MONOCYTES % 9.4 % (2.0-8.0); NEUTROPHILS % 45.5 % (40.0-76.0); PLATELET 413 x1000/uL (130-400); RED BLOOD CELL COUNT 4.11 mill/uL (4.2-5.4); RED CELL DISTRIBUTION WIDTH 22.8 % (11.6-14.6)
[2017-02-12 23:56] LABS: CARBON DIOXIDE 24 mEq/L (21-32); CHLORIDE 104 mEq/L (98-107)
[2017-02-13 02:12] LABS: CLARITY URINE CLEAR (CLEAR); COLOR URINE YELLOW (YELLOW); GLUCOSE URINE NEGATIVE (NEGATIVE); KETONES URINE NEGATIVE (NEGATIVE); LEUKOCYTE ESTERASE URINE 1+ (NEGATIVE); NITRITE URINE NEGATIVE (NEGATIVE); OCCULT BLOOD URINE NEGATIVE (NEGATIVE); PROTEIN URINE NEGATIVE (NEGATIVE); SPECIFIC GRAVITY URINE 1.006 (1.005-1.030); UROBILINOGEN URINE 0.2 E.U./dL (0.2-1.0)
[2017-02-13] MEDS ORDERED: ASPIRIN 81MG TABLET PO ONE (02:45)
[2017-02-13] MEDS ORDERED: IBUPROFEN 600MG TABLET PO ONE (04:30)
[2017-02-13] MEDS ORDERED: MORPHINE SULFATE 4 MG/ML CPJ (NOT FOR IM USE) IV STA (05:33)
[2017-02-13] MEDS ORDERED: ONDANSETRON HCL 4MG/2ML VIAL IV STA (05:33)
[2017-02-13] MEDS ORDERED: TRAMADOL 50MG TABLET PO ONE (05:45)
[2017-02-13] MEDS ORDERED: MORPHINE SULFATE 2 MG/ML CPJ (NOT FOR IM USE) IV NR (05:45)
[2017-02-13] MEDS ORDERED: CEFTRIAXONE 1 G PREMIX 50 ML IV ONE (05:45)
[2017-02-13 10:13] VITALS: BP 122/76
== END 2017-02-13 10:56 | disposition home or self-care (01) ==
LOC: ER 22:16 → EDBEDREQ 02-13 05:17 → EDBEDREQDT 02-13 05:17 → EDBEDREQSVC 02-13 05:17 → EDBEDREQTM 02-13 05:17 → ER 02-13 10:56 → CANBEDREQ 02-13 16:08
DX: R20.0 Anesthesia of skin (principal); E11.9 Type 2 diabetes mellitus without complications; I10 Essential (primary) hypertension; E78.00 Pure hypercholesterolemia, unspecified; Z91.041 Radiographic dye allergy status; Z86.73 Personal history of transient ischemic attack (TIA), and cerebral infarction without residual deficits; Z88.6 Allergy status to analgesic agent
CPT/HCPCS: 36415; 70450; 71010; 80053; 81001; 81025; 84484; 85025; 93005; 96374; 96375; 99285; J0696; J2270; J2405; Z7610

== ENCOUNTER 2017-02-25 19:38 | Emergency (ER) | payer MEDICAID ==
[~2017-02-25] VITALS: Ht 157.5 cm; Wt 73.0 kg
[2017-02-25] MEDS ORDERED: FAMOTIDINE 20MG/2ML VIAL IV STA (20:45)
[2017-02-25] MEDS ORDERED: ONDANSETRON HCL 4MG/2ML VIAL IV STA (20:45)
[2017-02-25] MEDS ORDERED: KETOROLAC 30MG/ML VIAL IV STA (20:45)
[2017-02-25] MEDS ORDERED: ASPIRIN 81MG TABLET PO ONE (20:45)
[2017-02-25 21:15] LABS: *AMPHETAMINES SCREEN URINE NEGATIVE (NEGATIVE); *BARBITURATES SCREEN URINE NEGATIVE (NEGATIVE); *BENZODIAZEPINES SCREEN URINE NEGATIVE (NEGATIVE); *COCAINE SCREEN URINE NEGATIVE (NEGATIVE); CANNABINOID URINE SCREEN NEGATIVE (NEGATIVE); METHADONE URINE SCREEN NEGATIVE (NEGATIVE); OPIATES URINE SCREEN NEGATIVE (NEGATIVE); PHENCYCLIDINE URINE SCREEN NEGATIVE (NEGATIVE)
[2017-02-25 22:19] LABS: BASOPHILS % 0.8 % (0.0-2.0); EOSINOPHILS % 1.9 % (0.0-5.0); LYMPHOCYTES % 35.9 % (20.0-50.0); MEAN CORPUSCULAR HEMOGLOBIN 22.9 pg (28.0-32.0); MEAN CORPUSCULAR VOLUME 73.1 fL (81.0-99.0); MONOCYTES % 9.2 % (2.0-8.0); NEUTROPHILS % 52.2 % (40.0-76.0); PLATELET 367 x1000/uL (130-400); RED BLOOD CELL COUNT 4.38 mill/uL (4.2-5.4); RED CELL DISTRIBUTION WIDTH 24.7 % (11.6-14.6)
[2017-02-25 22:27] LABS: PROTHROMBIN TIME 10.1 sec (9.4-11.6)
[2017-02-25 22:28] LABS: CHLORIDE 110 mEq/L (98-107)
[2017-02-25 22:32] LABS: CARBON DIOXIDE 23 mEq/L (21-32); ETHANOL BLOOD < 10 mg/dL
[2017-02-25 22:37] LABS: TROPONIN I < 0.02 ng/mL (0.00-0.04)
[2017-02-25 22:56] LABS: PLATELET ESTIMATE NORMAL
[2017-02-26 00:29] VITALS: BP 109/80
== END 2017-02-26 00:30 | disposition home or self-care (01) ==
LOC: ER 20:03 → CANBEDREQ 02-26 01:32
DX: R07.89 Other chest pain (principal); I10 Essential (primary) hypertension; E11.9 Type 2 diabetes mellitus without complications; R00.0 Tachycardia, unspecified; F17.210 Nicotine dependence, cigarettes, uncomplicated; Z90.79 Acquired absence of other genital organ(s); Z86.73 Personal history of transient ischemic attack (TIA), and cerebral infarction without residual deficits; Z88.6 Allergy status to analgesic agent; Z91.041 Radiographic dye allergy status
CPT/HCPCS: 36415; 71010; 74176; 76705; 80053; 80305; 83605; 83690; 83880; 84484; 85025; 85610; 93005; 96374; 96375; 99285; G0482; J1885; J2405; J3490; Z7610

== ENCOUNTER 2017-03-17 18:59 | Emergency (ER) | payer MEDICAID ==
[~2017-03-17] VITALS: Ht 157.5 cm; Wt 70.0 kg
[2017-03-17 22:00] VITALS: BP 131/82
[2017-03-17] MEDS ORDERED: KETOROLAC 30MG/ML VIAL IM ONE (22:15)
[2017-03-17] MEDS ORDERED: ONDANSETRON 4MG ODT PO ONE ×2 (22:15→22:30)
[2017-03-17] MEDS ORDERED: TRAMADOL 50MG TABLET PO ONE (22:30)
== END 2017-03-17 22:50 | disposition home or self-care (01) ==
LOC: ER 19:13
DX: T14.8XXA Other injury of unspecified body region, initial encounter (principal); G35 Multiple sclerosis; E11.9 Type 2 diabetes mellitus without complications; I10 Essential (primary) hypertension; W18.39XA Other fall on same level, initial encounter; Y93.89 Activity, other specified; Y92.89 Other specified places as the place of occurrence of the external cause; Y99.8 Other external cause status; Z86.73 Personal history of transient ischemic attack (TIA), and cerebral infarction without residual deficits; Z86.711 Personal history of pulmonary embolism; Z88.8 Allergy status to other drugs, medicaments and biological substances; Z88.6 Allergy status to analgesic agent
CPT/HCPCS: 81025; 99283; Z7610; J1885; Q0162

== ENCOUNTER 2017-03-26 06:10 | Emergency (ER) | payer MEDICAID ==
[~2017-03-26] VITALS: Ht 157.5 cm; Wt 74.0 kg
[2017-03-26 07:16] VITALS: BP 118/85
== END 2017-03-26 08:57 | disposition left against medical advice (07) ==
LOC: ER 07:51
DX: Z53.21 Procedure and treatment not carried out due to patient leaving prior to being seen by health care provider (principal)
CPT/HCPCS: 93005

== ENCOUNTER 2017-03-29 22:33 | Emergency (ER) | payer MEDICAID ==
[~2017-03-29] VITALS: Ht 157.5 cm; Wt 74.0 kg
[2017-03-30] MEDS ORDERED: ONDANSETRON HCL 4MG/2ML VIAL IV STA (00:54)
[2017-03-30] MEDS ORDERED: MORPHINE SULFATE 4 MG/ML CPJ (NOT FOR IM USE) IV STA (00:54)
[2017-03-30] MEDS ORDERED: LORAZEPAM 2MG/ML CPJ IV ONE (01:00)
[2017-03-30 01:24] LABS: BASOPHILS % 0.6 % (0.0-2.0); EOSINOPHILS % 1.8 % (0.0-5.0); HEMATOCRIT. 30.1 % (36.0-48.0); HEMOGLOBIN. 9.6 g/dL (12.0-16.0); LYMPHOCYTES % 31.5 % (20.0-50.0); MEAN CORPUSCULAR HEMOGLOBIN 22.9 pg (28.0-32.0); MEAN CORPUSCULAR VOLUME 71.9 fL (81.0-99.0); MEAN PLATELET VOLUME 6.7 fl (7.4-10.4); MONOCYTES % 8.3 % (2.0-8.0); NEUTROPHILS % 57.8 % (40.0-76.0); PLATELET 431 x1000/uL (130-400); RED BLOOD CELL COUNT 4.19 mill/uL (4.2-5.4); RED CELL DISTRIBUTION WIDTH 20.8 % (11.6-14.6)
[2017-03-30 01:39] LABS: CARBON DIOXIDE 19 mEq/L (21-32); CHLORIDE 110 mEq/L (98-107); TROPONIN I < 0.02 ng/mL (0.00-0.04)
[2017-03-30] MEDS ORDERED: HYDROCODONE/ACETAMINOPHEN 5/325MG TABLET PO ONE (03:30)
[2017-03-30 04:06] VITALS: BP 117/78
== END 2017-03-30 04:14 | disposition home or self-care (01) ==
LOC: ER 03-30 00:11
DX: R07.2 Precordial pain (principal); I10 Essential (primary) hypertension; E78.00 Pure hypercholesterolemia, unspecified; I34.1 Nonrheumatic mitral (valve) prolapse; Z86.711 Personal history of pulmonary embolism; Z91.041 Radiographic dye allergy status
CPT/HCPCS: 36415; 71045; 80053; 84484; 85025; 93005; 96374; 96375; 99285; J2060; J2270; J2405

== ENCOUNTER 2017-04-06 22:34 | Emergency (ER) | payer MEDICAID ==
[~2017-04-06] VITALS: Ht 157.5 cm; Wt 74.0 kg
[2017-04-07] MEDS ORDERED: KETOROLAC 30MG/ML VIAL IV STA (03:31)
[2017-04-07] MEDS ORDERED: SODIUM CHLORIDE 0.9% 1,000 ML IV ONE (03:45)
[2017-04-07 04:25] LABS: BASOPHILS % 0.8 % (0.0-2.0); HEMATOCRIT. 33.8 % (36.0-48.0); HEMOGLOBIN. 10.6 g/dL (12.0-16.0); MEAN CORPUSCULAR HEMOGLOBIN 22.6 pg (28.0-32.0); MEAN CORPUSCULAR VOLUME 72.2 fL (81.0-99.0); MEAN PLATELET VOLUME 6.8 fl (7.4-10.4); MONOCYTES % 7.8 % (2.0-8.0); NEUTROPHILS % 51.4 % (40.0-76.0); PLATELET 456 x1000/uL (130-400); RED BLOOD CELL COUNT 4.68 mill/uL (4.2-5.4); RED CELL DISTRIBUTION WIDTH 20.2 % (11.6-14.6)
[2017-04-07 04:30] LABS: PROTHROMBIN TIME 10.6 sec (9.4-11.6)
[2017-04-07 04:46] LABS: CARBON DIOXIDE 24 mEq/L (21-32); CHLORIDE 108 mEq/L (98-107); TROPONIN I < 0.02 ng/mL (0.00-0.04)
[2017-04-07] MEDS ORDERED: IBUPROFEN 800MG TABLET PO ONE (08:00)
[2017-04-07 08:01] VITALS: BP 109/66
== END 2017-04-07 08:04 | disposition home or self-care (01) ==
LOC: ER 22:47
DX: G43.909 Migraine, unspecified, not intractable, without status migrainosus (principal); K21.9 Gastro-esophageal reflux disease without esophagitis; Z86.73 Personal history of transient ischemic attack (TIA), and cerebral infarction without residual deficits; Z86.711 Personal history of pulmonary embolism; Z88.8 Allergy status to other drugs, medicaments and biological substances; Z88.6 Allergy status to analgesic agent
CPT/HCPCS: 36415; 71045; 80053; 83605; 83690; 83880; 84484; 85025; 85610; 87040; 87804; 93005; 96360; 99285; J1885; J7030; Z7610

== ENCOUNTER 2017-04-11 09:26 | Emergency (ER) | payer MEDICAID ==
[~2017-04-11] VITALS: Ht 162.6 cm; Wt 75.0 kg
[2017-04-11] MEDS ORDERED: SODIUM CHLORIDE 0.9% 1,000 ML IV ONE (14:30)
[2017-04-11 14:54] LABS: HEMATOCRIT. 33.7 % (36.0-48.0); HEMOGLOBIN. 10.7 g/dL (12.0-16.0); MEAN CORPUSCULAR VOLUME 72.6 fL (81.0-99.0); PLATELET 421 x1000/uL (130-400); RED BLOOD CELL COUNT 4.64 mill/uL (4.2-5.4)
[2017-04-11 15:08] LABS: CARBON DIOXIDE 18 mEq/L (21-32); CHLORIDE 107 mEq/L (98-107)
[2017-04-11] MEDS ORDERED: ACETAMINOPHEN 325MG TABLET PO ONE (15:30)
[2017-04-11 15:53] LABS: CLARITY URINE CLEAR (CLEAR); COLOR URINE ORANGE (YELLOW); KETONES URINE 1+ (NEGATIVE); LEUKOCYTE ESTERASE URINE TRACE (NEGATIVE); NITRITE URINE NEGATIVE (NEGATIVE); OCCULT BLOOD URINE 3+ (NEGATIVE); PROTEIN URINE TRACE (NEGATIVE); SPECIFIC GRAVITY URINE 1.016 (1.005-1.030); UROBILINOGEN URINE 0.2 E.U./dL (0.2-1.0)
[2017-04-11 15:58] LABS: PLATELET ESTIMATE SLIGHTLY INCREASED
[2017-04-11 16:24] VITALS: BP 105/75
== END 2017-04-11 19:06 | disposition home or self-care (01) ==
LOC: ER 10:16
DX: N39.0 Urinary tract infection, site not specified (principal); K21.9 Gastro-esophageal reflux disease without esophagitis; I10 Essential (primary) hypertension; E78.00 Pure hypercholesterolemia, unspecified; F41.9 Anxiety disorder, unspecified; R07.2 Precordial pain; Z86.73 Personal history of transient ischemic attack (TIA), and cerebral infarction without residual deficits
CPT/HCPCS: 36415; 71045; 80053; 81001; 83690; 84484; 85025; 85379; 93005; 96360; 96361; 99285; J7030

== ENCOUNTER 2017-05-29 10:45 | Emergency (ER) | payer MEDICAID ==
[~2017-05-29] VITALS: Ht 157.5 cm; Wt 75.0 kg
[~2017-05-29 10:45] MED LIST changes: +IBUP200C5 PO
[2017-05-29 12:22] LABS: BASOPHILS % 0.7 % (0.0-2.0); EOSINOPHILS % 1.4 % (0.0-5.0); HEMATOCRIT. 34.8 % (36.0-48.0); HEMOGLOBIN. 10.9 g/dL (12.0-16.0); LYMPHOCYTES % 21.1 % (20.0-50.0); MEAN CORPUSCULAR HEMOGLOBIN 22.7 pg (28.0-32.0); MEAN CORPUSCULAR VOLUME 72.4 fL (81.0-99.0); MEAN PLATELET VOLUME 6.6 fl (7.4-10.4); NEUTROPHILS % 68.8 % (40.0-76.0); PLATELET 516 x1000/uL (130-400); RED BLOOD CELL COUNT 4.81 mill/uL (4.2-5.4); RED CELL DISTRIBUTION WIDTH 19.5 % (11.6-14.6)
[2017-05-29 12:27] LABS: CLARITY URINE CLEAR (CLEAR); COLOR URINE YELLOW (YELLOW); KETONES URINE NEGATIVE (NEGATIVE); LEUKOCYTE ESTERASE URINE TRACE (NEGATIVE); NITRITE URINE NEGATIVE (NEGATIVE); OCCULT BLOOD URINE NEGATIVE (NEGATIVE); PROTEIN URINE NEGATIVE (NEGATIVE); SPECIFIC GRAVITY URINE 1.007 (1.005-1.030); UROBILINOGEN URINE 0.2 E.U./dL (0.2-1.0)
[2017-05-29 12:30] LABS: PROTHROMBIN TIME 10.4 sec (9.4-11.6)
[2017-05-29 12:33] LABS: CHLORIDE 108 mEq/L (98-107)
[2017-05-29 12:37] LABS: *AMPHETAMINES SCREEN URINE NEGATIVE (NEGATIVE); *BARBITURATES SCREEN URINE NEGATIVE (NEGATIVE); *BENZODIAZEPINES SCREEN URINE NEGATIVE (NEGATIVE); *COCAINE SCREEN URINE NEGATIVE (NEGATIVE); CANNABINOID URINE SCREEN NEGATIVE (NEGATIVE); METHADONE URINE SCREEN NEGATIVE (NEGATIVE); OPIATES URINE SCREEN NEGATIVE (NEGATIVE); PHENCYCLIDINE URINE SCREEN NEGATIVE (NEGATIVE)
[2017-05-29 12:39] LABS: TROPONIN I < 0.02 ng/mL (0.00-0.04)
[2017-05-29] MEDS ORDERED: LORAZEPAM 0.5MG TABLET PO ONE (14:00)
[2017-05-29] MEDS ORDERED: MORPHINE SULFATE 2 MG/ML CPJ (NOT FOR IM USE) IV ONE (14:00)
[2017-05-29] MEDS ORDERED: MORPHINE SULFATE 4 MG/ML CPJ (NOT FOR IM USE) IV SCH (15:15)
[2017-05-29] MEDS ORDERED: SULFAMETHOXAZOLE/TRIMETHOPRIM 800/160MG TABLET PO ONE (18:00)
[2017-05-29 18:07] VITALS: BP 119/78
== END 2017-05-29 18:09 | disposition home or self-care (01) ==
LOC: ER 10:45
DX: F41.1 Generalized anxiety disorder (principal); D50.9 Iron deficiency anemia, unspecified; R07.89 Other chest pain; E86.0 Dehydration; R29.810 Facial weakness; E11.65 Type 2 diabetes mellitus with hyperglycemia; N39.0 Urinary tract infection, site not specified; R74.0 Nonspecific elevation of levels of transaminase and lactic acid dehydrogenase [LDH]; I10 Essential (primary) hypertension; E78.00 Pure hypercholesterolemia, unspecified; D47.3 Essential (hemorrhagic) thrombocythemia; G35 Multiple sclerosis; Z88.8 Allergy status to other drugs, medicaments and biological substances; Z91.041 Radiographic dye allergy status
CPT/HCPCS: 36415; 70450; 71045; 80053; 80305; 81003; 81025; 83735; 83880; 84484; 85025; 85610; 87040; 87086; 93005; 96374; 99285; J2270; Z7610

== ENCOUNTER 2017-07-06 22:12 | Emergency (ER) | payer MEDICAID ==
[~2017-07-06] VITALS: Ht 157.5 cm; Wt 73.0 kg
[2017-07-06 22:18] VITALS: BP 129/100
== END 2017-07-07 | disposition left against medical advice (07) ==
LOC: ER 22:12
DX: R06.02 Shortness of breath (principal); H53.141 Visual discomfort, right eye; R00.2 Palpitations; R20.0 Anesthesia of skin; R11.10 Vomiting, unspecified; M54.89 Other dorsalgia; Z86.711 Personal history of pulmonary embolism; Z86.73 Personal history of transient ischemic attack (TIA), and cerebral infarction without residual deficits; Z91.041 Radiographic dye allergy status
CPT/HCPCS: 93005; 99283

== ENCOUNTER 2017-07-19 16:39 | Emergency (ER) | payer MEDICAID ==
[~2017-07-19] VITALS: Ht 157.5 cm; Wt 74.0 kg
[2017-07-19 17:02] VITALS: BP 152/112
[2017-07-19 18:40] LABS: BASOPHILS % 0.7 % (0.0-2.0); EOSINOPHILS % 1.3 % (0.0-5.0); HEMATOCRIT. 34.5 % (36.0-48.0); HEMOGLOBIN. 11.3 g/dL (12.0-16.0); LYMPHOCYTES % 24.1 % (20.0-50.0); MEAN CORPUSCULAR HEMOGLOBIN 23.6 pg (28.0-32.0); MEAN CORPUSCULAR VOLUME 71.9 fL (81.0-99.0); MEAN PLATELET VOLUME 7.2 fl (7.4-10.4); MONOCYTES % 7.1 % (2.0-8.0); NEUTROPHILS % 66.8 % (40.0-76.0); PLATELET 413 x1000/uL (130-400); RED CELL DISTRIBUTION WIDTH 18.3 % (11.6-14.6)
[2017-07-19 18:47] LABS: CHLORIDE 110 mEq/L (98-107)
[2017-07-19 18:52] LABS: ETHANOL BLOOD < 10 mg/dL
[2017-07-19 21:00] LABS: HCG SCREEN NEGATIVE
[2017-07-19] MEDS ORDERED: ACETAMINOPHEN 325MG TABLET PO STA (22:13)
[2017-07-19] MEDS ORDERED: LABETALOL HCL 20MG/4ML CARPUJECT IV ONE (22:15)
[2017-07-19 22:53] LABS: BASOPHILS % 0.5 % (0.0-2.0); EOSINOPHILS % 1.1 % (0.0-5.0); HEMATOCRIT. 36.2 % (36.0-48.0); LYMPHOCYTES % 28.9 % (20.0-50.0); MEAN CORPUSCULAR VOLUME 72.6 fL (81.0-99.0); MEAN PLATELET VOLUME 7.4 fl (7.4-10.4); MONOCYTES % 6.2 % (2.0-8.0); NEUTROPHILS % 63.3 % (40.0-76.0); PLATELET 421 x1000/uL (130-400); RED BLOOD CELL COUNT 4.98 mill/uL (4.2-5.4); RED CELL DISTRIBUTION WIDTH 18.3 % (11.6-14.6)
[2017-07-19 23:02] LABS: CHLORIDE 109 mEq/L (98-107)
[2017-07-19 23:05] LABS: PROTHROMBIN TIME 10.4 sec (9.4-11.6)
[2017-07-19 23:06] LABS: ETHANOL BLOOD < 10 mg/dL
[2017-07-19 23:15] LABS: HCG SCREEN NEGATIVE
[2017-07-20] MEDS ORDERED: HYDROCODONE/ACETAMINOPHEN 10/325MG TABLET PO ONE (00:30)
[2017-07-20] MEDS ORDERED: METHYLPREDNISOLONE SOD SUCC 125 MG/2 ML VIAL IV ONE (00:45)
[2017-07-20] MEDS ORDERED: TEMA15CA5 PO (09:09)
== END 2017-07-20 01:08 | disposition left against medical advice (07) ==
LOC: ER 18:49 → EDBEDREQ 07-20 00:48 → EDBEDREQTM 07-20 00:48 → ER 07-20 01:08 → CANRESERV 07-20 04:51 → ENRESERV 07-20 04:51 → CANBEDREQ 07-20 06:32
DX: H53.8 Other visual disturbances (principal); R20.0 Anesthesia of skin; R51 Headache; R00.2 Palpitations; R06.02 Shortness of breath; G35 Multiple sclerosis; Z88.6 Allergy status to analgesic agent; Z91.041 Radiographic dye allergy status; Z86.73 Personal history of transient ischemic attack (TIA), and cerebral infarction without residual deficits
CPT/HCPCS: 36415; 70450; 71045; 80053; 83036; 83605; 83690; 83880; 84484; 84703; 85025; 85610; 93005; 99291; G0482; J3490; Z7610

== ENCOUNTER 2017-07-20 08:54 | Emergency (ER) | payer MEDICAID ==
[~2017-07-20] VITALS: Ht 157.5 cm; Wt 74.0 kg
[2017-07-20] MEDS ORDERED: TEMA15CA5 PO (09:09)
[2017-07-20] MEDS ORDERED: ONDANSETRON HCL 4MG/2ML VIAL IV STA (11:25)
[2017-07-20] MEDS ORDERED: SODIUM CHLORIDE 0.9% 1,000 ML IV ONE (11:25)
[2017-07-20] MEDS ORDERED: MORPHINE SULFATE 4 MG/ML CPJ (NOT FOR IM USE) IV STA (11:25)
[2017-07-20 11:56] LABS: BASOPHILS % 0.7 % (0.0-2.0); CHLORIDE 110 mEq/L (98-107); EOSINOPHILS % 1.6 % (0.0-5.0); HEMATOCRIT. 33.9 % (36.0-48.0); HEMOGLOBIN. 10.8 g/dL (12.0-16.0); LYMPHOCYTES % 32.1 % (20.0-50.0); MEAN CORPUSCULAR VOLUME 72.6 fL (81.0-99.0); MEAN PLATELET VOLUME 7.1 fl (7.4-10.4); MONOCYTES % 7.7 % (2.0-8.0); NEUTROPHILS % 57.9 % (40.0-76.0); PLATELET 377 x1000/uL (130-400); RED BLOOD CELL COUNT 4.67 mill/uL (4.2-5.4); RED CELL DISTRIBUTION WIDTH 18.4 % (11.6-14.6)
[2017-07-20 11:58] LABS: PARTIAL THROMBOPLASTIN TIME 25.5 sec (23.4-31.0); PROTHROMBIN TIME 10.7 sec (9.4-11.6)
[2017-07-20] MEDS ORDERED: LORAZEPAM 1MG TABLET PO ONE (14:00)
[2017-07-20 14:25] VITALS: BP 118/71
== END 2017-07-20 14:25 | disposition home or self-care (01) ==
LOC: ER 08:54
DX: R10.11 Right upper quadrant pain (principal); R11.2 Nausea with vomiting, unspecified; R51 Headache; E78.00 Pure hypercholesterolemia, unspecified; I10 Essential (primary) hypertension; G35 Multiple sclerosis; Z98.890 Other specified postprocedural states; Z91.041 Radiographic dye allergy status; Z88.6 Allergy status to analgesic agent
CPT/HCPCS: 36415; 71045; 74176; 76705; 80053; 83690; 84484; 85025; 85610; 85730; 93005; 96361; 96374; 96375; 99285; J2270; J2405; J7030; Z7610

== ENCOUNTER 2017-07-25 08:31 | Emergency (ER) | payer MEDICAID ==
[~2017-07-25] VITALS: Ht 160 cm; Wt 73.0 kg
[~2017-07-25 08:31] MED LIST changes: -AMIT25TA9 PO; -DIVA500T PO; -GABA300C PO; -LORA0.5T2 PO; +TEMA15CA5 PO; -TRAM50TA3 PO
[2017-07-25] MEDS ORDERED: MORPHINE SULFATE 4 MG/ML CPJ (NOT FOR IM USE) IV STA (09:34)
[2017-07-25] MEDS ORDERED: ONDANSETRON HCL 4MG/2ML VIAL IV STA (09:34)
[2017-07-25] MEDS ORDERED: SODIUM CHLORIDE 0.9% 1,000 ML IV ONE (09:34)
[2017-07-25 09:57] LABS: BASOPHILS % 0.5 % (0.0-2.0); EOSINOPHILS % 2.3 % (0.0-5.0); HEMATOCRIT. 33.2 % (36.0-48.0); HEMOGLOBIN. 11.1 g/dL (12.0-16.0); LYMPHOCYTES % 24.6 % (20.0-50.0); MEAN CORPUSCULAR VOLUME 72.1 fL (81.0-99.0); MEAN PLATELET VOLUME 6.9 fl (7.4-10.4); MONOCYTES % 7.2 % (2.0-8.0); NEUTROPHILS % 65.4 % (40.0-76.0); PLATELET 392 x1000/uL (130-400); RED CELL DISTRIBUTION WIDTH 18.9 % (11.6-14.6)
[2017-07-25 10:01] LABS: CHLORIDE 109 mEq/L (98-107)
[2017-07-25 10:08] LABS: D-DIMER < 0.19 mg/L FEU (<0.50); PARTIAL THROMBOPLASTIN TIME 25.9 sec (23.4-31.0); PROTHROMBIN TIME 10.4 sec (9.4-11.6)
[2017-07-25 10:13] LABS: CLARITY URINE CLOUDY (CLEAR); COLOR URINE YELLOW (YELLOW); KETONES URINE NEGATIVE (NEGATIVE); LEUKOCYTE ESTERASE URINE 2+ (NEGATIVE); NITRITE URINE NEGATIVE (NEGATIVE); OCCULT BLOOD URINE NEGATIVE (NEGATIVE); PH URINE 6.5 (4.5-8.0); PROTEIN URINE NEGATIVE (NEGATIVE); SPECIFIC GRAVITY URINE 1.005 (1.005-1.030); UROBILINOGEN URINE 0.2 E.U./dL (0.2-1.0)
[2017-07-25 10:57] LABS: *AMPHETAMINES SCREEN URINE NEGATIVE (NEGATIVE); *BARBITURATES SCREEN URINE NEGATIVE (NEGATIVE)
[2017-07-25 10:58] LABS: *BENZODIAZEPINES SCREEN URINE NEGATIVE (NEGATIVE); *COCAINE SCREEN URINE NEGATIVE (NEGATIVE); CANNABINOID URINE SCREEN NEGATIVE (NEGATIVE); METHADONE URINE SCREEN NEGATIVE (NEGATIVE); OPIATES URINE SCREEN NEGATIVE (NEGATIVE); PHENCYCLIDINE URINE SCREEN NEGATIVE (NEGATIVE)
[2017-07-25 12:48] VITALS: BP 106/85
== END 2017-07-25 12:54 | disposition home or self-care (01) ==
LOC: ER 08:31
DX: R07.2 Precordial pain (principal); N39.0 Urinary tract infection, site not specified; R06.02 Shortness of breath; I10 Essential (primary) hypertension; F41.9 Anxiety disorder, unspecified; E78.00 Pure hypercholesterolemia, unspecified; E11.9 Type 2 diabetes mellitus without complications; Z86.73 Personal history of transient ischemic attack (TIA), and cerebral infarction without residual deficits; Z91.041 Radiographic dye allergy status; Z86.711 Personal history of pulmonary embolism
CPT/HCPCS: 36415; 71045; 80053; 80305; 81003; 81025; 83690; 83880; 84484; 85025; 85379; 85610; 85730; 87086; 93005; 96361; 96374; 96375; 99285; J2270; J2405; J7030

== ENCOUNTER 2017-08-16 08:59 | Emergency (ER) | payer MEDICAID ==
[~2017-08-16] VITALS: Ht 157.5 cm; Wt 75.0 kg
[~2017-08-16 08:59] MED LIST changes: -ACET-2178 PO; +ACET-2708 PO; +AMIT25TA9 PO; +BUTA1CAP45 PO; -TEMA15CA5 PO
[2017-08-16 09:07] VITALS: BP 144/79
[2017-08-16] MEDS ORDERED: FLUORESCEIN SODIUM 1MG/STRIP OP ONE (09:30)
[2017-08-16] MEDS ORDERED: TETRACAINE 0.5% OPHTH DROPS 4ML OP ONE (09:30)
== END 2017-08-16 09:38 | disposition left against medical advice (07) ==
LOC: ER 08:59
DX: H53.8 Other visual disturbances (principal); R07.9 Chest pain, unspecified; R00.2 Palpitations; R51 Headache; R20.0 Anesthesia of skin; I10 Essential (primary) hypertension; M32.9 Systemic lupus erythematosus, unspecified; Z98.890 Other specified postprocedural states; Z88.5 Allergy status to narcotic agent; Z86.73 Personal history of transient ischemic attack (TIA), and cerebral infarction without residual deficits; Z76.5 Malingerer [conscious simulation]
CPT/HCPCS: 99281

== ENCOUNTER 2017-09-08 21:56 | Emergency (ER) | payer MEDICAID ==
[~2017-09-08] VITALS: Ht 157.5 cm; Wt 75.0 kg
[2017-09-08 22:28] VITALS: BP 142/89
[2017-09-08] MEDS ORDERED: SODIUM CHLORIDE 0.9% 1,000 ML IV ONE (23:04)
[2017-09-08] MEDS ORDERED: LABETALOL HCL 20MG/4ML CARPUJECT IV ONE (23:15)
[2017-09-08] MEDS ORDERED: ASPIRIN 81MG TABLET PO ONE (23:15)
== END 2017-09-09 23:02 | disposition left against medical advice (07) ==
LOC: ER 21:57
DX: R06.00 Dyspnea, unspecified (principal); I10 Essential (primary) hypertension; Z91.048 Other nonmedicinal substance allergy status
CPT/HCPCS: 93005; 99283; J3490; J7030; Z7610

== ENCOUNTER 2017-09-09 19:38 | Inpatient (IN) | payer MEDICAID ==
[~2017-09-09] VITALS: Ht 154.9 cm; Wt 76.3 kg
[~2017-09-09 19:38] MED LIST changes: -AMIT25TA9 PO
[2017-09-09] MEDS ORDERED: ONDANSETRON HCL 4MG/2ML VIAL IV STA (22:55)
[2017-09-09] MEDS ORDERED: MORPHINE SULFATE 4 MG/ML CPJ (NOT FOR IM USE) IV STA (22:55)
[2017-09-10 00:06] LABS: BASOPHILS % 0.7 % (0.0-2.0); EOSINOPHILS % 1.9 % (0.0-5.0); HEMATOCRIT. 29.8 % (36.0-48.0); HEMOGLOBIN. 9.6 g/dL (12.0-16.0); LYMPHOCYTES % 34.7 % (20.0-50.0); MEAN CORPUSCULAR HEMOGLOBIN 23.2 pg (28.0-32.0); MEAN CORPUSCULAR VOLUME 71.5 fL (81.0-99.0); MEAN PLATELET VOLUME 6.8 fl (7.4-10.4); MONOCYTES % 8.6 % (2.0-8.0); NEUTROPHILS % 54.1 % (40.0-76.0); PLATELET 400 x1000/uL (130-400); RED BLOOD CELL COUNT 4.16 mill/uL (4.2-5.4)
[2017-09-10 00:12] LABS: CHLORIDE 109 mEq/L (98-107)
[2017-09-10 00:14] LABS: HCG SCREEN NEGATIVE
[2017-09-10 00:17] LABS: D-DIMER 0.3 mg/L FEU (<0.50); PARTIAL THROMBOPLASTIN TIME 24.9 sec (23.4-31.0); PROTHROMBIN TIME 10.2 sec (9.4-11.6)
[2017-09-10] MEDS ORDERED: ASPIRIN 325MG EC TABLET PO ONE (00:45)
[2017-09-10] MEDS ORDERED: ACETAMINOPHEN 325MG TABLET PO ONE (01:15)
[2017-09-10 04:30] VITALS: BP 145/76
[2017-09-10 08:00] VITALS: BP 106/68
[2017-09-10] MEDS ORDERED: ONDANSETRON HCL 4MG/2ML VIAL IV PRN (09:00)
[2017-09-10] MEDS ORDERED: ACETAMINOPHEN 325MG TABLET PO PRN (09:00)
[2017-09-10] MEDS ORDERED: DOCUSATE SODIUM 100MG CAPSULE PO PRN (09:00)
[2017-09-10] MEDS ORDERED: HYDROCODONE/ACETAMINOPHEN 5/325MG TABLET PO PRN (09:00)
[2017-09-10] MEDS ORDERED: CLONIDINE 0.1MG TABLET PO PRN (09:00)
[2017-09-10] MEDS ORDERED: AMLODIPINE 10MG TABLET PO SCH (09:15)
[2017-09-10] MEDS: ASPIRIN 81MG EC TABLET PO SCH (09:38)
[2017-09-10] MEDS: MORPHINE SULFATE 4 MG/ML CPJ (NOT FOR IM USE) IV PRN ×3 (09:39→19:36)
[2017-09-10] MEDS: ENOXAPARIN 40MG/0.4ML SYR SUBCUT SCH (09:39)
[2017-09-10 12:00] VITALS: BP 124/75
[2017-09-10] MEDS ORDERED: ACETAMINOPHEN 500MG TABLET PO PRN (12:30)
[2017-09-10] MEDS: ATORVASTATIN CALCIUM 40MG TABLET PO SCH (12:57)
[2017-09-10] MEDS: METOPROLOL TARTRATE 25MG TABLET PO SCH ×2 (12:58→21:20)
[2017-09-10] MEDS: POTASSIUM CHLORIDE 20MEQ TABLET SR PO SCH (13:05)
[2017-09-10 16:00] VITALS: BP 102/63
[2017-09-10 16:32] LABS: CREATINE KINASE 58 IU/L (26-192)
[2017-09-10 16:35] LABS: CREATINE KINASE MB FRACTION 0.6 ng/mL (0.5-3.6)
[2017-09-10 20:00] VITALS: BP 107/73
[2017-09-10] MEDS ORDERED: TEMAZEPAM 15MG CAPSULE PO SCH (21:00)
[2017-09-10] MEDS: DIPHENHYDRAMINE 50MG/ML VIAL IV PRN (21:28)
[2017-09-10 23:36] VITALS: BP 103/61
[2017-09-11 00:06] LABS: CREATINE KINASE 55 IU/L (26-192)
[2017-09-11 00:07] LABS: CREATINE KINASE MB FRACTION < 0.5 ng/mL (0.5-3.6)
[2017-09-11] MEDS: MORPHINE SULFATE 4 MG/ML CPJ (NOT FOR IM USE) IV PRN ×3 (00:29→11:09)
[2017-09-11 04:00] VITALS: BP 105/61
[2017-09-11 06:25] LABS: CHLORIDE 106 mEq/L (98-107)
[2017-09-11 06:30] LABS: BASOPHILS % 0.9 % (0.0-2.0); EOSINOPHILS % 3.1 % (0.0-5.0); HEMATOCRIT. 31.3 % (36.0-48.0); LYMPHOCYTES % 35.3 % (20.0-50.0); MEAN CORPUSCULAR HEMOGLOBIN 22.8 pg (28.0-32.0); MEAN CORPUSCULAR VOLUME 71.6 fL (81.0-99.0); MEAN PLATELET VOLUME 7.4 fl (7.4-10.4); MONOCYTES % 10.1 % (2.0-8.0); NEUTROPHILS % 50.6 % (40.0-76.0); PLATELET 385 x1000/uL (130-400); RED BLOOD CELL COUNT 4.38 mill/uL (4.2-5.4); RED CELL DISTRIBUTION WIDTH 18.6 % (11.6-14.6)
[2017-09-11 06:31] LABS: LDL CHOLESTEROL 128 mg/dL (5-100)
[2017-09-11 06:34] LABS: HDL CHOLESTEROL 38 mg/dL (40-59)
[2017-09-11] MEDS: DIPHENHYDRAMINE 50MG/ML VIAL IV PRN ×2 (07:42→13:29)
[2017-09-11] MEDS: ASPIRIN 81MG EC TABLET PO SCH (08:31)
[2017-09-11] MEDS: POTASSIUM CHLORIDE 20MEQ TABLET SR PO SCH (08:31)
[2017-09-11] MEDS: ATORVASTATIN CALCIUM 40MG TABLET PO SCH (08:31)
[2017-09-11] MEDS: ENOXAPARIN 40MG/0.4ML SYR SUBCUT SCH (08:32)
[2017-09-11 14:37] VITALS: BP 101/54
== END 2017-09-11 15:30 | disposition home or self-care (01) | DRG 58 ==
LOC: ER 22:41 → EDBEDREQ 23:03 → 6WST 09-10 01:01 → EDBEDREQ 09-10 01:06 → EDBEDREQDT 09-10 01:06 → EDBEDREQTM 09-10 01:06
PROVIDERS: ADMIT Hospitalist; ATTEND Hospitalist
DX: R20.0 Anesthesia of skin (principal); E44.1 Mild protein-calorie malnutrition; E87.8 Other disorders of electrolyte and fluid balance, not elsewhere classified; I10 Essential (primary) hypertension; E11.9 Type 2 diabetes mellitus without complications; F32.9 Major depressive disorder, single episode, unspecified; E78.00 Pure hypercholesterolemia, unspecified; F43.10 Post-traumatic stress disorder, unspecified; F41.9 Anxiety disorder, unspecified; R00.2 Palpitations; M25.551 Pain in right hip; Z86.711 Personal history of pulmonary embolism; Z86.73 Personal history of transient ischemic attack (TIA), and cerebral infarction without residual deficits; Z79.899 Other long term (current) drug therapy; Z88.8 Allergy status to other drugs, medicaments and biological substances; Z98.51 Tubal ligation status; E83.51 Hypocalcemia
CPT/HCPCS: 36415; 70450; 71045; 73502; 80053; 80061; 82550; 82553; 83880; 84484; 84703; 85025; 85379; 85610; 85730; 93005; 93306; 93970; 96374; 96375; 99285; J1200; J1650; J2270; J2405

== ENCOUNTER 2017-10-10 23:40 | Emergency (ER) | payer MEDICAID | END 2017-10-11 01:16 | disposition left against medical advice (07) | LOC: ER 23:40 | DX: Z53.21 Procedure and treatment not carried out due to patient leaving prior to being seen by health care provider (principal) ==

== ENCOUNTER 2017-10-14 22:50 | Emergency (ER) | payer MEDICAID ==
[~2017-10-14] VITALS: Ht 157.5 cm; Wt 75.0 kg
[2017-10-14] MEDS ORDERED: ONDANSETRON HCL 4MG/2ML VIAL IV STA (23:56)
[2017-10-14] MEDS ORDERED: SODIUM CHLORIDE 0.9% 1,000 ML IV ONE (23:56)
[2017-10-15] MEDS ORDERED: MORPHINE SULFATE 4 MG/ML CPJ (NOT FOR IM USE) IV ONE
[2017-10-15 00:27] LABS: BASOPHILS % 0.3 % (0.0-2.0); HEMOGLOBIN. 9.2 g/dL (12.0-16.0); LYMPHOCYTES % 18.9 % (20.0-50.0); MEAN CORPUSCULAR HEMOGLOBIN 22.9 pg (28.0-32.0); MEAN CORPUSCULAR VOLUME 72.5 fL (81.0-99.0); MEAN PLATELET VOLUME 7.5 fl (7.4-10.4); MONOCYTES % 10.6 % (2.0-8.0); NEUTROPHILS % 70.2 % (40.0-76.0); PLATELET 337 x1000/uL (130-400); RED BLOOD CELL COUNT 4.01 mill/uL (4.2-5.4); RED CELL DISTRIBUTION WIDTH 18.7 % (11.6-14.6)
[2017-10-15 00:29] LABS: CHLORIDE 106 mEq/L (98-107)
[2017-10-15 00:45] LABS: CLARITY URINE CLEAR (CLEAR); COLOR URINE YELLOW (YELLOW); KETONES URINE TRACE (NEGATIVE); LEUKOCYTE ESTERASE URINE 1+ (NEGATIVE); NITRITE URINE NEGATIVE (NEGATIVE); OCCULT BLOOD URINE NEGATIVE (NEGATIVE); PH URINE 5.5 (4.5-8.0); PROTEIN URINE NEGATIVE (NEGATIVE); SPECIFIC GRAVITY URINE 1.023 (1.005-1.030); UROBILINOGEN URINE 0.2 E.U./dL (0.2-1.0)
[2017-10-15 05:20] VITALS: BP 121/72
== END 2017-10-15 05:21 | disposition home or self-care (01) ==
LOC: ER 22:50
DX: N39.0 Urinary tract infection, site not specified (principal); D64.9 Anemia, unspecified; R06.02 Shortness of breath; R03.0 Elevated blood-pressure reading, without diagnosis of hypertension; R00.2 Palpitations
CPT/HCPCS: 36415; 71045; 74176; 80053; 81003; 81025; 83690; 84484; 85025; 87086; 93005; 96361; 96374; 96375; 99285; J2270; J2405; J7030; Z7610

== ENCOUNTER 2017-12-09 22:27 | Emergency (ER) | payer MEDICAID ==
[~2017-12-09] VITALS: Ht 157.5 cm; Wt 76.5 kg
[~2017-12-09 22:27] MED LIST changes: +DIVA250T4 MT
[2017-12-10] MEDS ORDERED: MORPHINE SULFATE 4 MG/ML CPJ (NOT FOR IM USE) IV STA (02:14)
[2017-12-10] MEDS ORDERED: ONDANSETRON HCL 4MG/2ML INJ IV STA (02:14)
[2017-12-10 02:50] LABS: BASOPHILS % 0.4 % (0.0-2.0); EOSINOPHILS % 2.6 % (0.0-5.0); HEMATOCRIT. 33.4 % (36.0-48.0); HEMOGLOBIN. 11.2 g/dL (12.0-16.0); LYMPHOCYTES % 26.9 % (20.0-50.0); MEAN CORPUSCULAR HEMOGLOBIN 24.6 pg (28.0-32.0); MEAN CORPUSCULAR VOLUME 73.7 fL (81.0-99.0); MEAN PLATELET VOLUME 7.1 fl (7.4-10.4); MONOCYTES % 8.7 % (2.0-8.0); NEUTROPHILS % 61.4 % (40.0-76.0); PLATELET 390 x1000/uL (130-400); RED BLOOD CELL COUNT 4.53 mill/uL (4.2-5.4); RED CELL DISTRIBUTION WIDTH 20.1 % (11.6-14.6)
[2017-12-10 02:53] LABS: CHLORIDE 107 mEq/L (98-107)
[2017-12-10 05:37] VITALS: BP 118/73
== END 2017-12-10 05:46 | disposition home or self-care (01) ==
LOC: ER 22:27
DX: G89.4 Chronic pain syndrome (principal); J98.11 Atelectasis; I10 Essential (primary) hypertension; R00.0 Tachycardia, unspecified; E11.9 Type 2 diabetes mellitus without complications; Z91.041 Radiographic dye allergy status; Z88.6 Allergy status to analgesic agent; Z98.51 Tubal ligation status; Z86.711 Personal history of pulmonary embolism; Z86.73 Personal history of transient ischemic attack (TIA), and cerebral infarction without residual deficits; Z79.01 Long term (current) use of anticoagulants
CPT/HCPCS: 36415; 71045; 80053; 84484; 85025; 93005; 96374; 96375; 99285; J2270; J2405

== ENCOUNTER 2018-01-05 17:19 | Emergency (ER) | payer MEDICAID ==
[~2018-01-05] VITALS: Ht 167.6 cm; Wt 79.0 kg
[2018-01-05] MEDS ORDERED: IBUPROFEN 600MG TABLET PO STA (18:30)
[2018-01-05 20:18] LABS: BASOPHILS % 0.7 % (0.0-2.0); EOSINOPHILS % 1.8 % (0.0-5.0); HEMATOCRIT. 33.6 % (36.0-48.0); HEMOGLOBIN. 10.9 g/dL (12.0-16.0); LYMPHOCYTES % 32.6 % (20.0-50.0); MEAN CORPUSCULAR HEMOGLOBIN 24.6 pg (28.0-32.0); MEAN CORPUSCULAR VOLUME 75.9 fL (81.0-99.0); MEAN PLATELET VOLUME 7.3 fl (7.4-10.4); MONOCYTES % 9.3 % (2.0-8.0); NEUTROPHILS % 55.6 % (40.0-76.0); PLATELET 342 x1000/uL (130-400); RED BLOOD CELL COUNT 4.42 mill/uL (4.2-5.4); RED CELL DISTRIBUTION WIDTH 19.6 % (11.6-14.6)
[2018-01-05 20:27] LABS: CHLORIDE 113 mEq/L (98-107)
[2018-01-05] MEDS ORDERED: ASPIRIN 325MG EC TABLET PO ONE (22:15)
[2018-01-06 00:57] VITALS: BP 118/82
== END 2018-01-06 01:06 | disposition home or self-care (01) ==
LOC: ER 17:19
DX: I20.0 Unstable angina (principal); G43.109 Migraine with aura, not intractable, without status migrainosus; F44.9 Dissociative and conversion disorder, unspecified; G89.29 Other chronic pain; E78.00 Pure hypercholesterolemia, unspecified; I10 Essential (primary) hypertension; I51.9 Heart disease, unspecified; Z86.73 Personal history of transient ischemic attack (TIA), and cerebral infarction without residual deficits; Z98.51 Tubal ligation status; Z91.041 Radiographic dye allergy status; Z88.6 Allergy status to analgesic agent; Z79.899 Other long term (current) drug therapy
CPT/HCPCS: 36415; 70450; 70551; 71045; 80053; 81025; 82962; 83880; 84484; 85025; 93005; 99285; Z7610

== ENCOUNTER 2018-01-29 09:24 | Emergency (ER) | payer MEDICAID ==
[~2018-01-29] VITALS: Ht 157.5 cm; Wt 78.0 kg
[2018-01-29 09:40] VITALS: BP 136/88
[2018-01-29] MEDS ORDERED: ASPI-1159 PO (09:45)
[2018-01-29] MEDS ORDERED: PROCHLORPERAZINE 10MG/2ML VIAL IV ONE (11:30)
[2018-01-29] MEDS ORDERED: DIPHENHYDRAMINE 25MG CAPSULE PO ONE (11:30)
== END 2018-01-29 11:25 | disposition left against medical advice (07) ==
LOC: ER 11:19
DX: R07.89 Other chest pain (principal); R51 Headache; I10 Essential (primary) hypertension; Z76.5 Malingerer [conscious simulation]; Z98.51 Tubal ligation status; Z90.722 Acquired absence of ovaries, bilateral; Z98.890 Other specified postprocedural states; Z79.82 Long term (current) use of aspirin; Z79.899 Other long term (current) drug therapy; Z91.041 Radiographic dye allergy status; Z88.6 Allergy status to analgesic agent
CPT/HCPCS: 93005; 99284; J0780

== ENCOUNTER 2018-03-13 20:32 | Emergency (ER) | payer MEDICAID ==
[~2018-03-13] VITALS: Ht 157.5 cm; Wt 78.0 kg
[~2018-03-13 20:32] MED LIST changes: +ASPI-1159 PO
[2018-03-13] MEDS ORDERED: MORPHINE SULFATE 4 MG/ML CPJ (NOT FOR IM USE) IV STA (23:32)
[2018-03-13 23:42] LABS: BASOPHILS % 0.5 % (0.0-2.0); EOSINOPHILS % 0.7 % (0.0-5.0); HEMATOCRIT. 35.6 % (36.0-48.0); HEMOGLOBIN. 11.6 g/dL (12.0-16.0); LYMPHOCYTES % 19.9 % (20.0-50.0); MEAN CORPUSCULAR HEMOGLOBIN 24.4 pg (28.0-32.0); MEAN CORPUSCULAR VOLUME 75.1 fL (81.0-99.0); MEAN PLATELET VOLUME 7.4 fl (7.4-10.4); MONOCYTES % 6.3 % (2.0-8.0); NEUTROPHILS % 72.6 % (40.0-76.0); PLATELET 361 x1000/uL (130-400); RED BLOOD CELL COUNT 4.74 mill/uL (4.2-5.4); RED CELL DISTRIBUTION WIDTH 18.2 % (11.6-14.6)
[2018-03-13 23:45] LABS: CHLORIDE 107 mEq/L (98-107)
[2018-03-13] MEDS ORDERED: DIPHENHYDRAMINE 50MG/ML VIAL IV ONE (23:45)
[2018-03-13] MEDS ORDERED: MORPHINE SULFATE 10 MG/ML CPJ IV NR (23:45)
[2018-03-13] MEDS ORDERED: METOCLOPRAMIDE HCL 10MG/2ML VIAL IV ONE (23:45)
[2018-03-14 03:27] LABS: CLARITY URINE CLOUDY (CLEAR); COLOR URINE YELLOW (YELLOW); KETONES URINE NEGATIVE (NEGATIVE); LEUKOCYTE ESTERASE URINE NEGATIVE (NEGATIVE); NITRITE URINE NEGATIVE (NEGATIVE); OCCULT BLOOD URINE NEGATIVE (NEGATIVE); PROTEIN URINE NEGATIVE (NEGATIVE); SPECIFIC GRAVITY URINE 1.012 (1.005-1.030); UROBILINOGEN URINE 0.2 E.U./dL (0.2-1.0)
[2018-03-14 03:52] VITALS: BP 121/76
== END 2018-03-14 03:55 | disposition home or self-care (01) ==
LOC: ER 20:32
DX: G43.909 Migraine, unspecified, not intractable, without status migrainosus (principal); R07.9 Chest pain, unspecified; E11.9 Type 2 diabetes mellitus without complications; I10 Essential (primary) hypertension; E78.00 Pure hypercholesterolemia, unspecified; E05.90 Thyrotoxicosis, unspecified without thyrotoxic crisis or storm; Z88.6 Allergy status to analgesic agent; Z88.8 Allergy status to other drugs, medicaments and biological substances; Z86.73 Personal history of transient ischemic attack (TIA), and cerebral infarction without residual deficits; Z98.51 Tubal ligation status; Z86.711 Personal history of pulmonary embolism
CPT/HCPCS: 36415; 70450; 71045; 80053; 81003; 83880; 84484; 85025; 96374; 96375; 99284; J1200; J2270; J2765

== ENCOUNTER 2018-04-23 09:42 | Emergency (ER) | payer MEDICAID ==
[~2018-04-23] VITALS: Ht 157.5 cm; Wt 78.0 kg
[2018-04-23 10:07] VITALS: BP 145/91
== END 2018-04-23 13:07 | disposition left against medical advice (07) ==
LOC: ER 09:42
DX: R06.02 Shortness of breath (principal); R07.89 Other chest pain; R42 Dizziness and giddiness; Z53.21 Procedure and treatment not carried out due to patient leaving prior to being seen by health care provider
CPT/HCPCS: 93005

== ENCOUNTER 2019-05-01 21:23 | Emergency (ER) | payer MEDICAID ==
[~2019-05-01] VITALS: Ht 157.5 cm; Wt 80.0 kg
[~2019-05-01 21:23] MED LIST changes: -ASPI-1159 PO; +ASPI-1497 PO
[2019-05-01 21:36] VITALS: BP 141/89
== END 2019-05-02 00:20 | disposition left against medical advice (07) ==
LOC: ER 21:23
DX: R07.89 Other chest pain (principal); Z53.21 Procedure and treatment not carried out due to patient leaving prior to being seen by health care provider
CPT/HCPCS: 93005

== ENCOUNTER 2019-05-18 12:59 | Emergency (ER) | payer MEDICAID ==
[~2019-05-18] VITALS: Ht 157.5 cm; Wt 67.0 kg
[2019-05-18 14:35] LABS: EOSINOPHILS % 1.3 % (0.0-5.0); HEMATOCRIT. 42.4 % (36.0-48.0); HEMOGLOBIN. 14.8 g/dL (12.0-16.0); LYMPHOCYTES % 28.8 % (20.0-50.0); MEAN CORPUSCULAR HEMOGLOBIN 29.7 pg (28.0-32.0); MEAN CORPUSCULAR VOLUME 85.2 fL (81.0-99.0); MEAN PLATELET VOLUME 7.3 fl (7.4-10.4); MONOCYTES % 6.4 % (2.0-8.0); NEUTROPHILS % 62.5 % (40.0-76.0); PLATELET 410 x1000/uL (130-400); RED BLOOD CELL COUNT 4.98 mill/uL (4.2-5.4); RED CELL DISTRIBUTION WIDTH 16.7 % (11.6-14.6)
[2019-05-18] MEDS ORDERED: SODIUM CHLORIDE 0.9% 1000ML BAG (SEPSIS BOLUS) IV ONE (15:15)
[2019-05-18 15:25] LABS: CHLORIDE 100 mEq/L (98-107)
[2019-05-18 15:30] LABS: ETHANOL BLOOD < 10 mg/dL
[2019-05-18 15:35] LABS: CLARITY URINE CLEAR (CLEAR); COLOR URINE YELLOW (YELLOW); KETONES URINE 1+ (NEGATIVE); LEUKOCYTE ESTERASE URINE TRACE (NEGATIVE); NITRITE URINE NEGATIVE (NEGATIVE); OCCULT BLOOD URINE NEGATIVE (NEGATIVE); PH URINE 5.5 (4.5-8.0); PROTEIN URINE NEGATIVE (NEGATIVE); SPECIFIC GRAVITY URINE 1.021 (1.005-1.030); UROBILINOGEN URINE 0.2 E.U./dL (0.2-1.0)
[2019-05-18 16:08] LABS: BETA HYDROXYBUTYRATE 0.2 mMol/L (0.0-0.3)
[2019-05-18] MEDS ORDERED: ACETAMINOPHEN 325MG TABLET PO ONE (16:15)
[2019-05-18 16:40] LABS: *AMPHETAMINES SCREEN URINE NEGATIVE (NEGATIVE); *BARBITURATES SCREEN URINE NEGATIVE (NEGATIVE); *COCAINE SCREEN URINE NEGATIVE (NEGATIVE); CANNABINOID URINE SCREEN NEGATIVE (NEGATIVE); METHADONE URINE SCREEN NEGATIVE (NEGATIVE); PHENCYCLIDINE URINE SCREEN NEGATIVE (NEGATIVE)
[2019-05-18 16:41] LABS: OPIATES URINE SCREEN NEGATIVE (NEGATIVE)
[2019-05-18 16:51] LABS: *BENZODIAZEPINES SCREEN URINE PRESUMTIVE POSITIVE (NEGATIVE)
[2019-05-18] MEDS ORDERED: HYDROCODONE/ACETAMINOPHEN 5/325MG TABLET PO ONE (18:45)
[2019-05-18] MEDS ORDERED: LEVOFLOXACIN 500MG PREMIX 100 ML IV ONE (18:45)
[2019-05-18 22:00] VITALS: BP 120/71
== END 2019-05-18 23:38 | disposition left against medical advice (07) ==
LOC: ER 12:59 → EDBEDREQ 18:40 → EDBEDREQTM 18:40 → EDBEDREQ 18:58 → ER 23:38 → CANBEDREQ 23:45
DX: A41.9 Sepsis, unspecified organism (principal); E11.9 Type 2 diabetes mellitus without complications; G40.901 Epilepsy, unspecified, not intractable, with status epilepticus; N17.0 Acute kidney failure with tubular necrosis; E11.21 Type 2 diabetes mellitus with diabetic nephropathy; E11.40 Type 2 diabetes mellitus with diabetic neuropathy, unspecified; E87.2 Acidosis; E88.09 Other disorders of plasma-protein metabolism, not elsewhere classified; R65.10 Systemic inflammatory response syndrome (SIRS) of non-infectious origin without acute organ dysfunction; R06.82 Tachypnea, not elsewhere classified; R00.0 Tachycardia, unspecified; R82.71 Bacteriuria; R82.4 Acetonuria; G35 Multiple sclerosis; I10 Essential (primary) hypertension; N39.0 Urinary tract infection, site not specified; K21.9 Gastro-esophageal reflux disease without esophagitis; F13.10 Sedative, hypnotic or anxiolytic abuse, uncomplicated; Z91.041 Radiographic dye allergy status; Z88.6 Allergy status to analgesic agent; Z79.899 Other long term (current) drug therapy
CPT/HCPCS: 36415; 70450; 80053; 80165; 80185; 80305; 80320; 81003; 82010; 82542; 83605; 83735; 84145; 85025; 87040; 87086; 96361; 96365; 96366; 99285; J1956; J7030; G0480

== ENCOUNTER 2019-07-27 06:04 | Emergency (ER) | payer MEDICAID ==
[~2019-07-27] VITALS: Ht 157.5 cm; Wt 79.4 kg
[2019-07-27] MEDS ORDERED: ACETAMINOPHEN WITH CODEINE 300/30MG TABLET PO STA (06:57)
[2019-07-27] MEDS ORDERED: SODIUM CHLORIDE 0.9% 1,000 ML IV ONE (06:57)
[2019-07-27 08:20] LABS: BASOPHILS % 0.4 % (0.0-2.0); HEMATOCRIT. 36.3 % (36.0-48.0); HEMOGLOBIN. 11.7 g/dL (12.0-16.0); LYMPHOCYTES % 13.3 % (20.0-50.0); MEAN CORPUSCULAR HEMOGLOBIN 27.5 pg (28.0-32.0); MEAN CORPUSCULAR VOLUME 84.8 fL (81.0-99.0); MEAN PLATELET VOLUME 7.7 fl (7.4-10.4); MONOCYTES % 1.8 % (2.0-8.0); NEUTROPHILS % 84.5 % (40.0-76.0); PLATELET 384 x1000/uL (130-400); RED BLOOD CELL COUNT 4.27 mill/uL (4.2-5.4); RED CELL DISTRIBUTION WIDTH 16.3 % (11.6-14.6)
[2019-07-27 08:32] LABS: CHLORIDE 106 mEq/L (98-107)
[2019-07-27 08:38] LABS: ETHANOL BLOOD < 10 mg/dL
[2019-07-27 09:38] VITALS: BP 113/60
[2019-07-27 12:03] LABS: *AMPHETAMINES SCREEN URINE NEGATIVE (NEGATIVE); *BARBITURATES SCREEN URINE NEGATIVE (NEGATIVE); *BENZODIAZEPINES SCREEN URINE NEGATIVE (NEGATIVE); *COCAINE SCREEN URINE NEGATIVE (NEGATIVE)
[2019-07-27 12:04] LABS: CANNABINOID URINE SCREEN NEGATIVE (NEGATIVE)
[2019-07-27 12:05] LABS: METHADONE URINE SCREEN NEGATIVE (NEGATIVE); PHENCYCLIDINE URINE SCREEN NEGATIVE (NEGATIVE)
[2019-07-27 12:21] LABS: OPIATES URINE SCREEN PRESUMTIVE POSITIVE (NEGATIVE)
== END 2019-07-27 13:11 | disposition left against medical advice (07) ==
LOC: ER 06:04
DX: Z20.828 Contact with and (suspected) exposure to other viral communicable diseases (principal); R07.89 Other chest pain; B34.9 Viral infection, unspecified; E11.9 Type 2 diabetes mellitus without complications; I10 Essential (primary) hypertension; Z86.73 Personal history of transient ischemic attack (TIA), and cerebral infarction without residual deficits; Z98.51 Tubal ligation status; Z98.890 Other specified postprocedural states; Z79.899 Other long term (current) drug therapy; Z88.6 Allergy status to analgesic agent; Z91.041 Radiographic dye allergy status
CPT/HCPCS: 36415; 71045; 80053; 80305; 80320; 84484; 85025; 87635; 93005; 99285; J7030; G0480

== ENCOUNTER 2019-09-08 00:14 | Emergency (ER) | payer MEDICAID, OTHER ==
[~2019-09-08] VITALS: Ht 157.5 cm; Wt 80.0 kg
[2019-09-08] MEDS ORDERED: SODIUM CHLORIDE 0.9% 1,000 ML IV ONE (01:21)
[2019-09-08] MEDS ORDERED: ONDANSETRON HCL 4MG/2ML INJ IV STA (01:21)
[2019-09-08] MEDS ORDERED: MORPHINE SULFATE 4 MG/ML CPJ (NOT FOR IM USE) IV STA (01:21)
[2019-09-08 01:38] LABS: CHLORIDE 106 mEq/L (98-107)
[2019-09-08 01:39] LABS: CLARITY URINE CLEAR (CLEAR); COLOR URINE YELLOW (YELLOW); KETONES URINE 1+ (NEGATIVE); LEUKOCYTE ESTERASE URINE 1+ (NEGATIVE); NITRITE URINE NEGATIVE (NEGATIVE); OCCULT BLOOD URINE NEGATIVE (NEGATIVE); PH URINE 6.5 (4.5-8.0); PROTEIN URINE NEGATIVE (NEGATIVE); SPECIFIC GRAVITY URINE 1.015 (1.005-1.030); UROBILINOGEN URINE 0.2 E.U./dL (0.2-1.0)
[2019-09-08 01:40] LABS: BASOPHILS % 0.3 % (0.0-2.0); EOSINOPHILS % 2.4 % (0.0-5.0); HEMATOCRIT. 31.1 % (36.0-48.0); HEMOGLOBIN. 10.2 g/dL (12.0-16.0); LYMPHOCYTES % 19.6 % (20.0-50.0); MEAN CORPUSCULAR HEMOGLOBIN 25.3 pg (28.0-32.0); MONOCYTES % 9.4 % (2.0-8.0); NEUTROPHILS % 68.3 % (40.0-76.0); PLATELET 431 x1000/uL (130-400); RED BLOOD CELL COUNT 4.04 mill/uL (4.2-5.4); RED CELL DISTRIBUTION WIDTH 16.5 % (11.6-14.6)
[2019-09-08 01:42] LABS: HCG SCREEN NEGATIVE
[2019-09-08 04:15] VITALS: BP 104/60
[2019-09-08] MEDS ORDERED: PIPERACILLIN/TAZ 3.375G PREMIX 50 ML IV ONE (04:30)
[2019-09-08] MEDS ORDERED: SODIUM CHLORIDE 0.9% 1000ML BAG (SEPSIS BOLUS) IV ONE (04:30)
== END 2019-09-08 04:56 | disposition left against medical advice (07) ==
LOC: ER 00:14
DX: N12 Tubulo-interstitial nephritis, not specified as acute or chronic (principal); E87.2 Acidosis; I10 Essential (primary) hypertension; E11.9 Type 2 diabetes mellitus without complications; Z86.73 Personal history of transient ischemic attack (TIA), and cerebral infarction without residual deficits; Z79.899 Other long term (current) drug therapy; Z79.82 Long term (current) use of aspirin
CPT/HCPCS: 36415; 71045; 74176; 80053; 81003; 83605; 83690; 84145; 84703; 85025; 93005; 96374; 96375; 99285; J2270; J2405; J7030

== ENCOUNTER 2019-10-20 19:34 | Inpatient (IN) | payer MEDICAID, OTHER ==
[~2019-10-20] VITALS: Ht 154.9 cm; Wt 75.7 kg
[~2019-10-20 19:34] MED LIST changes: +ATOR10TA PO; +METF-414 PO
[2019-10-20 23:05] LABS: CLARITY URINE CLEAR (CLEAR); COLOR URINE YELLOW (YELLOW); KETONES URINE 1+ (NEGATIVE); LEUKOCYTE ESTERASE URINE 2+ (NEGATIVE); NITRITE URINE NEGATIVE (NEGATIVE); OCCULT BLOOD URINE NEGATIVE (NEGATIVE); PH URINE 6.5 (4.5-8.0); PROTEIN URINE NEGATIVE (NEGATIVE); SPECIFIC GRAVITY URINE 1.016 (1.005-1.030); UROBILINOGEN URINE 0.2 E.U./dL (0.2-1.0)
[2019-10-20 23:15] LABS: BASOPHILS % 0.4 % (0.0-2.0); HEMATOCRIT. 30.7 % (36.0-48.0); LYMPHOCYTES % 11.9 % (20.0-50.0); MEAN CORPUSCULAR HEMOGLOBIN 23.8 pg (28.0-32.0); MEAN CORPUSCULAR VOLUME 73.4 fL (81.0-99.0); MEAN PLATELET VOLUME 7.2 fl (7.4-10.4); MONOCYTES % 6.3 % (2.0-8.0); NEUTROPHILS % 81.4 % (40.0-76.0); PLATELET 412 x1000/uL (130-400); RED BLOOD CELL COUNT 4.18 mill/uL (4.2-5.4); RED CELL DISTRIBUTION WIDTH 20.1 % (11.6-14.6)
[2019-10-20 23:22] LABS: CHLORIDE 105 mEq/L (98-107)
[2019-10-20] MEDS ORDERED: MORPHINE SULFATE 4 MG/ML CPJ (NOT FOR IM USE) IV NR (23:22)
[2019-10-20] MEDS ORDERED: ONDANSETRON HCL 4MG/2ML INJ IV NR (23:22)
[2019-10-20] MEDS ORDERED: SODIUM CHLORIDE 0.9% 1,000 ML IV ONE ×2 (23:53→23:59)
[2019-10-21] MEDS ORDERED: CEFTRIAXONE 1 G PREMIX 50 ML IV ONE
[2019-10-21] MEDS ORDERED: ASPIRIN 325MG EC TABLET PO ONE
[2019-10-21 04:00] VITALS: BP 96/32
[2019-10-21] MEDS ORDERED: DIVA500T3 MT (04:03)
[2019-10-21] MEDS ORDERED: TEMA30CA5 MT (04:03)
[2019-10-21] MEDS ORDERED: METO25TA6 MT (04:03)
[2019-10-21 04:11] VITALS: BP 96/32
[2019-10-21] MEDS ORDERED: DEXTROSE 50% WATER 50ML SYRINGE IV PRN (05:00)
[2019-10-21] MEDS ORDERED: TEMAZEPAM 15MG CAPSULE PO PRN (05:00)
[2019-10-21] MEDS: MORPHINE SULFATE 2 MG/ML CPJ (NOT FOR IM USE) IV PRN ×5 (05:36→21:48)
[2019-10-21] MEDS: BLOOD SUGAR DIAGNOSTIC STRIP TEST SCH ×4 (06:24→20:47)
[2019-10-21] MEDS: INSULIN LISPRO 100 UNITS/ML SUBCUT SCH ×4 (06:33→21:00)
[2019-10-21 08:00] VITALS: BP 102/51
[2019-10-21 08:07] LABS: BASOPHILS % 0.2 % (0.0-2.0); HEMATOCRIT. 28.6 % (36.0-48.0); HEMOGLOBIN. 9.1 g/dL (12.0-16.0); LYMPHOCYTES % 22.8 % (20.0-50.0); MEAN CORPUSCULAR HEMOGLOBIN 23.5 pg (28.0-32.0); MEAN CORPUSCULAR VOLUME 73.6 fL (81.0-99.0); PLATELET 370 x1000/uL (130-400); RED BLOOD CELL COUNT 3.88 mill/uL (4.2-5.4); RED CELL DISTRIBUTION WIDTH 19.6 % (11.6-14.6)
[2019-10-21 08:23] LABS: CREATINE KINASE 31 IU/L (26-192)
[2019-10-21 08:24] LABS: CREATINE KINASE MB FRACTION < 1.0 ng/mL (0.5-3.6)
[2019-10-21] MEDS: ONDANSETRON HCL 4MG/2ML INJ IV PRN ×3 (09:43→23:57)
[2019-10-21 12:00] VITALS: BP 119/76
[2019-10-21] MEDS: CEFTRIAXONE 1,000 MG in DEXTROSE 5% WATER 50 ML IV SCH (16:51)
[2019-10-21 20:00] VITALS: BP 116/68
[2019-10-21] MEDS: METOPROLOL TARTRATE 25MG TABLET PO SCH (20:46)
[2019-10-21] MEDS: DIVALPROEX SODIUM 500MG DR TABLET PO SCH (20:47)
[2019-10-21] MEDS ORDERED: ATORVASTATIN CALCIUM 10MG TABLET PO SCH (21:00)
[2019-10-21 21:56] LABS: *AMPHETAMINES SCREEN URINE NEGATIVE (NEGATIVE)
[2019-10-21 21:57] LABS: *BARBITURATES SCREEN URINE NEGATIVE (NEGATIVE); *BENZODIAZEPINES SCREEN URINE NEGATIVE (NEGATIVE); *COCAINE SCREEN URINE NEGATIVE (NEGATIVE); CANNABINOID URINE SCREEN NEGATIVE (NEGATIVE); METHADONE URINE SCREEN NEGATIVE (NEGATIVE); PHENCYCLIDINE URINE SCREEN NEGATIVE (NEGATIVE)
[2019-10-21 22:01] LABS: OPIATES URINE SCREEN PRESUMTIVE POSITIVE (NEGATIVE)
[2019-10-22] VITALS: BP 93/42
[2019-10-22 02:10] VITALS: BP 103/65
[2019-10-22] MEDS: MORPHINE SULFATE 2 MG/ML CPJ (NOT FOR IM USE) IV PRN ×4 (02:15→15:12)
[2019-10-22 04:00] VITALS: BP 97/44
[2019-10-22] MEDS: BLOOD SUGAR DIAGNOSTIC STRIP TEST SCH ×3 (06:11→17:22)
[2019-10-22] MEDS: ONDANSETRON HCL 4MG/2ML INJ IV PRN ×2 (06:17→15:08)
[2019-10-22 06:47] LABS: BASOPHILS % 0.5 % (0.0-2.0); EOSINOPHILS % 1.2 % (0.0-5.0); HEMATOCRIT. 28.5 % (36.0-48.0); HEMOGLOBIN. 9.3 g/dL (12.0-16.0); LYMPHOCYTES % 48.6 % (20.0-50.0); MEAN CORPUSCULAR HEMOGLOBIN 23.8 pg (28.0-32.0); MEAN CORPUSCULAR VOLUME 73.2 fL (81.0-99.0); MEAN PLATELET VOLUME 6.8 fl (7.4-10.4); NEUTROPHILS % 36.7 % (40.0-76.0); PLATELET 345 x1000/uL (130-400); RED BLOOD CELL COUNT 3.89 mill/uL (4.2-5.4); RED CELL DISTRIBUTION WIDTH 19.5 % (11.6-14.6)
[2019-10-22] MEDS: INSULIN LISPRO 100 UNITS/ML SUBCUT SCH ×3 (07:01→17:24)
[2019-10-22 07:14] LABS: CHLORIDE 107 mEq/L (98-107); FOLIC ACID (FOLATE) SERUM 17.3 ng/mL (>5.38)
[2019-10-22 07:20] LABS: TOTAL IRON BINDING CAPACITY 442 ug/dL (250-450)
[2019-10-22 08:00] VITALS: BP 113/64
[2019-10-22] MEDS ORDERED: BARIUM SULFATE 176 GM SUSP.RECON ONE (08:32)
[2019-10-22] MEDS ORDERED: EZ-HD SUSPENSION(BARIUM SULFATE 340GM) PO ONE (08:32)
[2019-10-22] MEDS ORDERED: SIMETHICONE/SOD BICARB/CIT AC 1 EACH GRAN.EF.PK ONE (08:34)
[2019-10-22] MEDS: METOPROLOL TARTRATE 25MG TABLET PO SCH (09:00)
[2019-10-22] MEDS: DIVALPROEX SODIUM 500MG DR TABLET PO SCH (09:00)
[2019-10-22 12:00] VITALS: BP 107/59
[2019-10-22] MEDS: CEFTRIAXONE 1,000 MG in DEXTROSE 5% WATER 50 ML IV SCH (15:08)
[2019-10-22] MEDS ORDERED: ATOR10TA PO (16:54)
[2019-10-22] MEDS ORDERED: NITR-87 MT (16:54)
[2019-10-22] MEDS ORDERED: FERR325T6 MT (16:54)
[2019-10-22 17:50] VITALS: BP 118/65
[2019-10-22] MEDS ORDERED: IRON SUCROSE COMPLEX 100 MG/5 ML ML IV NR (18:00)
== END 2019-10-22 18:30 | disposition home or self-care (01) | DRG 463 ==
LOC: ER 19:34 → MERGE 23:55 → MICUSO 23:55 → EDBEDREQ 23:56 → EDBEDREQTM 23:56 → 8WST 10-21 02:22
PROVIDERS: ADMIT Internal Medicine; ATTEND Internal Medicine
DX: N12 Tubulo-interstitial nephritis, not specified as acute or chronic (principal); D72.810 Lymphocytopenia; E78.5 Hyperlipidemia, unspecified; E87.2 Acidosis; I10 Essential (primary) hypertension; K76.0 Fatty (change of) liver, not elsewhere classified; R13.10 Dysphagia, unspecified; D50.9 Iron deficiency anemia, unspecified; R07.89 Other chest pain; E11.65 Type 2 diabetes mellitus with hyperglycemia; E66.01 Morbid (severe) obesity due to excess calories; G35 Multiple sclerosis; G40.909 Epilepsy, unspecified, not intractable, without status epilepticus; Z68.31 Body mass index [BMI] 31.0-31.9, adult; Z86.73 Personal history of transient ischemic attack (TIA), and cerebral infarction without residual deficits; Z86.711 Personal history of pulmonary embolism; Z79.01 Long term (current) use of anticoagulants; Z88.8 Allergy status to other drugs, medicaments and biological substances; Z91.041 Radiographic dye allergy status
CPT/HCPCS: 36415; 71045; 74176; 74220; 80048; 80053; 80061; 80305; 81003; 82550; 82553; 82607; 82728; 82746; 82962; 83036; 83540; 83550; 83605; 83880; 84443; 84484; 85025; 85379; 93005; 93306; 96365; 99285; J0696; J1815; J2270; J2405; J7030; J7060; J7517

== ENCOUNTER 2019-11-20 08:41 | Inpatient (IN) | payer MEDICAID ==
[~2019-11-20] VITALS: Ht 152.4 cm; Wt 75.8 kg
[~2019-11-20 08:41] MED LIST changes: +DIVA500T3 MT; +FERR325T6 MT; +METO25TA6 MT; +NITR-87 MT; +TEMA30CA5 MT
[2019-11-20] MEDS ORDERED: MORPHINE SULFATE 4 MG/ML CPJ (NOT FOR IM USE) IV STA (10:30)
[2019-11-20 10:41] LABS: BASOPHILS % 0.6 % (0.0-2.0); EOSINOPHILS % 0.7 % (0.0-5.0); HEMATOCRIT. 33.9 % (36.0-48.0); HEMOGLOBIN. 11.1 g/dL (12.0-16.0); LYMPHOCYTES % 13.9 % (20.0-50.0); MEAN CORPUSCULAR HEMOGLOBIN 24.7 pg (28.0-32.0); MEAN CORPUSCULAR VOLUME 75.6 fL (81.0-99.0); MEAN PLATELET VOLUME 7.2 fl (7.4-10.4); MONOCYTES % 3.5 % (2.0-8.0); NEUTROPHILS % 81.3 % (40.0-76.0); PLATELET 431 x1000/uL (130-400); RED BLOOD CELL COUNT 4.48 mill/uL (4.2-5.4); RED CELL DISTRIBUTION WIDTH 22.1 % (11.6-14.6)
[2019-11-20 10:43] LABS: CHLORIDE 106 mEq/L (98-107)
[2019-11-20 10:47] LABS: INR 0.9; PROTHROMBIN TIME 9.8 sec (9.6-11.0)
[2019-11-20] MEDS ORDERED: ONDANSETRON HCL 4MG/2ML INJ IV ONE (11:15)
[2019-11-20 11:22] LABS: PLATELET ESTIMATE INCREASED
[2019-11-20] MEDS ORDERED: DIPHENHYDRAMINE 50MG/ML VIAL IV ONE (11:30)
[2019-11-20] MEDS ORDERED: SODIUM CHLORIDE 0.9% 1,000 ML IV ONE (15:00)
[2019-11-20] MEDS ORDERED: MORPHINE SULFATE 4 MG/ML CPJ (NOT FOR IM USE) IV ONE (15:00)
[2019-11-20] MEDS ORDERED: GUAIFENESIN 200MG/10ML SUGAR FREE UDC PO PRN (17:15)
[2019-11-20] MEDS ORDERED: ACETAMINOPHEN 325MG TABLET PO PRN (17:15)
[2019-11-20] MEDS ORDERED: NA PHOS,M-B/NA PHOS,DI-BA ENEMA 118ML PR PRN (17:15)
[2019-11-20] MEDS ORDERED: CLONIDINE 0.1MG TABLET PO PRN (17:15)
[2019-11-20] MEDS ORDERED: HYDROCODONE/ACETAMINOPHEN 5/325MG TABLET PO PRN (17:15)
[2019-11-20] MEDS ORDERED: LORAZEPAM 2MG/ML CPJ IV PRN (17:15)
[2019-11-20] MEDS ORDERED: IPRATROPIUM/ALBUTEROL 0.5-3(2.5)MG/3ML NEB NEB PRN (17:15)
[2019-11-20] MEDS ORDERED: DOCUSATE SODIUM 100MG CAPSULE PO PRN (17:15)
[2019-11-20] MEDS ORDERED: DIPHENHYDRAMINE 50MG/ML VIAL IV PRN (17:15)
[2019-11-20] MEDS ORDERED: MAGNESIUM/ALUMINUM HYDROXIDE/SIMETHICONE 30ML UDC PO PRN (17:15)
[2019-11-20] MEDS: MORPHINE SULFATE 2 MG/ML CPJ (NOT FOR IM USE) IV PRN (20:35)
[2019-11-20] MEDS: ONDANSETRON HCL 4MG/2ML INJ IV PRN (20:35)
[2019-11-20] MEDS ORDERED: ENOXAPARIN 40MG/0.4ML SYR SUBCUT SCH (21:00)
[2019-11-20 22:30] VITALS: BP 144/80
[2019-11-21] MEDS: MORPHINE SULFATE 2 MG/ML CPJ (NOT FOR IM USE) IV PRN ×4 (01:07→13:13)
[2019-11-21 04:00] VITALS: BP 127/79
[2019-11-21] MEDS ORDERED: DEXTROSE 50% WATER 50ML SYRINGE IV PRN (04:45)
[2019-11-21 06:03] LABS: BASOPHILS % 0.5 % (0.0-2.0); CHLORIDE 104 mEq/L (98-107); EOSINOPHILS % 2.9 % (0.0-5.0); HEMATOCRIT. 30.7 % (36.0-48.0); HEMOGLOBIN. 10.1 g/dL (12.0-16.0); LYMPHOCYTES % 31.4 % (20.0-50.0); MEAN CORPUSCULAR HEMOGLOBIN 24.8 pg (28.0-32.0); MEAN CORPUSCULAR VOLUME 75.5 fL (81.0-99.0); MEAN PLATELET VOLUME 7.1 fl (7.4-10.4); MONOCYTES % 10.9 % (2.0-8.0); NEUTROPHILS % 54.3 % (40.0-76.0); PLATELET 410 x1000/uL (130-400); RED BLOOD CELL COUNT 4.07 mill/uL (4.2-5.4); RED CELL DISTRIBUTION WIDTH 21.5 % (11.6-14.6)
[2019-11-21 06:15] LABS: LDL CHOLESTEROL 140 mg/dL (5-100)
[2019-11-21 06:16] LABS: T4 FREE 0.93 ng/dL (0.76-1.46)
[2019-11-21 06:17] LABS: HDL CHOLESTEROL 46 mg/dL (40-59)
[2019-11-21] MEDS: BLOOD SUGAR DIAGNOSTIC STRIP TEST SCH ×2 (07:16→12:12)
[2019-11-21] MEDS: INSULIN LISPRO 100 UNITS/ML SUBCUT SCH ×2 (07:40→12:13)
[2019-11-21 08:00] VITALS: BP 129/73
[2019-11-21] MEDS: ONDANSETRON HCL 4MG/2ML INJ IV PRN (08:15)
[2019-11-21] MEDS ORDERED: ASPIRIN 81MG EC TABLET PO SCH (09:00)
[2019-11-21 12:00] VITALS: BP 116/78
[2019-11-21 14:54] VITALS: BP 116/78
[2019-11-21] MEDS ORDERED: ATORVASTATIN CALCIUM 40MG TABLET PO SCH (21:00)
== END 2019-11-21 16:07 | disposition home or self-care (01) | DRG 203 ==
LOC: ER 08:41 → 8WST 16:05 → MERGE 16:05 → ENRESERV 20:36
PROVIDERS: ADMIT Internal Medicine; ATTEND Internal Medicine
DX: M94.0 Chondrocostal junction syndrome [Tietze] (principal); M54.9 Dorsalgia, unspecified; R06.09 Other forms of dyspnea; I50.9 Heart failure, unspecified; E11.9 Type 2 diabetes mellitus without complications; G35 Multiple sclerosis; I34.1 Nonrheumatic mitral (valve) prolapse; E78.5 Hyperlipidemia, unspecified; D25.9 Leiomyoma of uterus, unspecified; G89.29 Other chronic pain; I11.0 Hypertensive heart disease with heart failure; I25.10 Atherosclerotic heart disease of native coronary artery without angina pectoris; Z86.711 Personal history of pulmonary embolism; Z79.01 Long term (current) use of anticoagulants; Z88.8 Allergy status to other drugs, medicaments and biological substances; Z91.041 Radiographic dye allergy status; Z79.899 Other long term (current) drug therapy; I69.354 Hemiplegia and hemiparesis following cerebral infarction affecting left non-dominant side; Z79.84 Long term (current) use of oral hypoglycemic drugs; Z68.32 Body mass index [BMI] 32.0-32.9, adult; R07.89 Other chest pain
CPT/HCPCS: 36415; 71045; 78580; 80053; 80061; 82962; 83036; 83880; 84439; 84443; 84484; 85025; 93005; 99285; J1200; J1650; J2270; J2405; J7030

== ENCOUNTER 2019-12-13 21:27 | Emergency (ER) | payer MEDICAID ==
[~2019-12-13] VITALS: Ht 157.5 cm; Wt 77.2 kg
[2019-12-13] MEDS ORDERED: MORPHINE SULFATE 4 MG/ML CPJ (NOT FOR IM USE) IV STA (22:28)
[2019-12-13] MEDS ORDERED: ONDANSETRON HCL 4MG/2ML INJ IV STA (22:28)
[2019-12-14 00:12] LABS: HEMATOCRIT. 34.7 % (36.0-48.0); HEMOGLOBIN. 11.3 g/dL (12.0-16.0); LYMPHOCYTES % 12.3 % (20.0-50.0); MEAN CORPUSCULAR HEMOGLOBIN 24.7 pg (28.0-32.0); MEAN CORPUSCULAR VOLUME 76.1 fL (81.0-99.0); MEAN PLATELET VOLUME 7.2 fl (7.4-10.4); MONOCYTES % 2.7 % (2.0-8.0); PLATELET 549 x1000/uL (130-400); RED BLOOD CELL COUNT 4.55 mill/uL (4.2-5.4); RED CELL DISTRIBUTION WIDTH 21.5 % (11.6-14.6)
[2019-12-14 00:13] LABS: CHLORIDE 105 mEq/L (98-107)
[2019-12-14 00:16] LABS: PROTHROMBIN TIME 10.3 sec (9.6-11.0)
[2019-12-14 00:20] LABS: HCG SCREEN NEGATIVE
[2019-12-14 00:39] LABS: CLARITY URINE CLEAR (CLEAR); COLOR URINE YELLOW (YELLOW); KETONES URINE NEGATIVE (NEGATIVE); LEUKOCYTE ESTERASE URINE NEGATIVE (NEGATIVE); NITRITE URINE NEGATIVE (NEGATIVE); OCCULT BLOOD URINE NEGATIVE (NEGATIVE); PROTEIN URINE NEGATIVE (NEGATIVE); SPECIFIC GRAVITY URINE 1.023 (1.005-1.030); UROBILINOGEN URINE 0.2 E.U./dL (0.2-1.0)
[2019-12-14] MEDS ORDERED: DIPHENHYDRAMINE 50MG/ML VIAL IV PRN (02:00)
[2019-12-14] MEDS ORDERED: LORAZEPAM 2MG/ML CPJ IV PRN (02:00)
[2019-12-14] MEDS ORDERED: CLONIDINE 0.1MG TABLET PO PRN (02:00)
[2019-12-14] MEDS ORDERED: ACETAMINOPHEN 325MG TABLET PO PRN (02:00)
[2019-12-14] MEDS ORDERED: MAGNESIUM/ALUMINUM HYDROXIDE/SIMETHICONE 30ML UDC PO PRN (02:00)
[2019-12-14] MEDS ORDERED: MORPHINE SULFATE 2 MG/ML CPJ (NOT FOR IM USE) IV PRN (02:00)
[2019-12-14] MEDS ORDERED: HYDROCODONE/ACETAMINOPHEN 5/325MG TABLET PO PRN (02:00)
[2019-12-14] MEDS ORDERED: ENOXAPARIN 40MG/0.4ML SYR SUBCUT SCH (02:00)
[2019-12-14] MEDS ORDERED: GUAIFENESIN 200MG/10ML SUGAR FREE UDC PO PRN (02:00)
[2019-12-14] MEDS ORDERED: DOCUSATE SODIUM 100MG CAPSULE PO PRN (02:00)
[2019-12-14] MEDS ORDERED: ONDANSETRON HCL 4MG/2ML INJ IV PRN (02:00)
[2019-12-14] MEDS ORDERED: IPRATROPIUM/ALBUTEROL 0.5-3(2.5)MG/3ML NEB NEB PRN (02:00)
[2019-12-14 05:19] LABS: CHLORIDE 106 mEq/L (98-107)
[2019-12-14 05:30] VITALS: BP 120/83
[2019-12-14] MEDS ORDERED: ASPIRIN 81MG EC TABLET PO SCH (09:00)
== END 2019-12-14 05:40 | disposition left against medical advice (07) ==
LOC: ER 21:27 → ENRESERV 12-14 07:18 → CANRESERV 12-14 07:18 → CANBEDREQ 12-14 10:25
DX: R07.89 Other chest pain (principal); D64.9 Anemia, unspecified; M79.605 Pain in left leg; E11.9 Type 2 diabetes mellitus without complications; I10 Essential (primary) hypertension; Z86.73 Personal history of transient ischemic attack (TIA), and cerebral infarction without residual deficits; Z98.51 Tubal ligation status; Z79.899 Other long term (current) drug therapy; Z88.6 Allergy status to analgesic agent
CPT/HCPCS: 36415; 71045; 80048; 80053; 81003; 83690; 83880; 84484; 84703; 85025; 85610; 93005; 96372; 96374; 96375; 99285; J1650; J2270; J2405

== ENCOUNTER 2019-12-18 19:59 | Emergency (ER) | payer MEDICAID, OTHER ==
[~2019-12-18] VITALS: Ht 167.6 cm; Wt 100.0 kg
[2019-12-18 20:29] VITALS: BP 124/86
== END 2019-12-19 | disposition left against medical advice (07) ==
LOC: ER 19:59
DX: R07.89 Other chest pain (principal); Z53.21 Procedure and treatment not carried out due to patient leaving prior to being seen by health care provider
CPT/HCPCS: 93005

== ENCOUNTER 2019-12-19 15:29 | Emergency (ER) | payer OTHER ==
[~2019-12-19] VITALS: Ht 157.5 cm; Wt 78.0 kg
[2019-12-19] MEDS ORDERED: MORPHINE SULFATE 4 MG/ML CPJ (NOT FOR IM USE) IV STA (15:47)
[2019-12-19 16:19] LABS: BASOPHILS % 0.5 % (0.0-2.0); EOSINOPHILS % 0.5 % (0.0-5.0); HEMATOCRIT. 34.8 % (36.0-48.0); HEMOGLOBIN. 11.3 g/dL (12.0-16.0); LYMPHOCYTES % 22.2 % (20.0-50.0); MEAN CORPUSCULAR HEMOGLOBIN 24.7 pg (28.0-32.0); MEAN CORPUSCULAR VOLUME 75.8 fL (81.0-99.0); NEUTROPHILS % 69.8 % (40.0-76.0); PLATELET 441 x1000/uL (130-400); RED BLOOD CELL COUNT 4.59 mill/uL (4.2-5.4); RED CELL DISTRIBUTION WIDTH 20.8 % (11.6-14.6)
[2019-12-19 16:24] LABS: CHLORIDE 103 mEq/L (98-107)
[2019-12-19 16:39] LABS: HCG SCREEN NEGATIVE
[2019-12-19] MEDS ORDERED: SODIUM CHLORIDE 0.9% 1,000 ML IV ONE (16:55)
[2019-12-19] MEDS ORDERED: DIPHENHYDRAMINE 50MG/ML VIAL IV ONE (17:15)
[2019-12-19 17:25] LABS: CLARITY URINE CLEAR (CLEAR); COLOR URINE YELLOW (YELLOW); KETONES URINE TRACE (NEGATIVE); LEUKOCYTE ESTERASE URINE 2+ (NEGATIVE); NITRITE URINE NEGATIVE (NEGATIVE); OCCULT BLOOD URINE NEGATIVE (NEGATIVE); PROTEIN URINE NEGATIVE (NEGATIVE); SPECIFIC GRAVITY URINE 1.027 (1.005-1.030); UROBILINOGEN URINE 0.2 E.U./dL (0.2-1.0)
[2019-12-19] MEDS ORDERED: IOHEXOL-350 100 ML BOTTLE ONE ×2 (17:30→23:06)
[2019-12-19] MEDS ORDERED: ONDANSETRON HCL 4MG/2ML INJ IV ONE (18:00)
[2019-12-19] MEDS ORDERED: CEFTRIAXONE 1 G PREMIX 50 ML IV ONE (18:00)
[2019-12-19] MEDS ORDERED: SODIUM CHLORIDE 0.9% 1000ML BAG (SEPSIS BOLUS) IV ONE (18:00)
[2019-12-19 21:45] VITALS: BP 118/76
[2019-12-20] MEDS ORDERED: CEFTRIAXONE 1 G PREMIX 50 ML IV SCH (18:00)
== END 2019-12-19 22:04 | disposition left against medical advice (07) ==
LOC: ER 15:29 → CANRESERV 20:08 → ENRESERV 20:08 → ER 22:04 → CANRESERV 23:01 → ENRESERV 23:01 → CANBEDREQ 23:18
DX: A41.9 Sepsis, unspecified organism (principal); R65.20 Severe sepsis without septic shock; E11.9 Type 2 diabetes mellitus without complications; I10 Essential (primary) hypertension; Z91.041 Radiographic dye allergy status; Z88.6 Allergy status to analgesic agent; Z98.890 Other specified postprocedural states; Z98.51 Tubal ligation status; Z86.73 Personal history of transient ischemic attack (TIA), and cerebral infarction without residual deficits
CPT/HCPCS: 36415; 71045; 71275; 76770; 80053; 81003; 83605; 83690; 83880; 84484; 84703; 85025; 87040; 87086; 93005; 96365; 96375; 99291; J0696; J1200; J2270; J2405; J7030; Q9967

== ENCOUNTER 2020-01-25 21:22 | Emergency (ER) | payer OTHER ==
[~2020-01-25] VITALS: Ht 157.5 cm; Wt 80.0 kg
[~2020-01-25 21:22] MED LIST changes: -ACET-2708 PO
[2020-01-25] MEDS ORDERED: ASPIRIN 325MG EC TABLET PO ONE (22:45)
[2020-01-25] MEDS ORDERED: HYDROCODONE/ACETAMINOPHEN 5/325MG TABLET PO ONE (22:45)
[2020-01-25 22:54] LABS: BASOPHILS % 0.8 % (0.0-2.0); EOSINOPHILS % 2.3 % (0.0-5.0); HEMATOCRIT. 35.3 % (36.0-48.0); HEMOGLOBIN. 11.6 g/dL (12.0-16.0); LYMPHOCYTES % 16.8 % (20.0-50.0); MEAN CORPUSCULAR HEMOGLOBIN 24.7 pg (28.0-32.0); MEAN CORPUSCULAR VOLUME 75.2 fL (81.0-99.0); MEAN PLATELET VOLUME 7.8 fl (7.4-10.4); MONOCYTES % 5.2 % (2.0-8.0); NEUTROPHILS % 74.9 % (40.0-76.0); PLATELET 424 x1000/uL (130-400); RED BLOOD CELL COUNT 4.69 mill/uL (4.2-5.4); RED CELL DISTRIBUTION WIDTH 17.6 % (11.6-14.6)
[2020-01-25 22:58] LABS: CHLORIDE 106 mEq/L (98-107)
[2020-01-25] MEDS ORDERED: MORPHINE SULFATE 4 MG/ML CPJ (NOT FOR IM USE) IV STA (23:34)
[2020-01-25] MEDS ORDERED: SODIUM CHLORIDE 0.9% 1,000 ML IV ONE (23:45)
[2020-01-26] MEDS ORDERED: DIPHENHYDRAMINE 50MG/ML VIAL IV ONE (00:45)
[2020-01-26] MEDS ORDERED: MORPHINE SULFATE 4 MG/ML CPJ (NOT FOR IM USE) IV ONE (02:15)
[2020-01-26] MEDS ORDERED: SODIUM CHLORIDE 0.9% 1,000 ML IV ONE (02:15)
[2020-01-26] MEDS ORDERED: METHYLPREDNISOLONE SOD SUCC 125 MG/2 ML VIAL IV ONE (02:30)
[2020-01-26] MEDS ORDERED: IOHEXOL-350 100 ML BOTTLE ONE (02:38)
[2020-01-26 03:42] LABS: CLARITY URINE CLEAR (CLEAR); COLOR URINE YELLOW (YELLOW); KETONES URINE NEGATIVE (NEGATIVE); LEUKOCYTE ESTERASE URINE 1+ (NEGATIVE); NITRITE URINE NEGATIVE (NEGATIVE); OCCULT BLOOD URINE NEGATIVE (NEGATIVE); PROTEIN URINE NEGATIVE (NEGATIVE); SPECIFIC GRAVITY URINE 1.005 (1.005-1.030); UROBILINOGEN URINE 0.2 E.U./dL (0.2-1.0)
[2020-01-26 05:38] VITALS: BP 127/63
== END 2020-01-26 05:44 | disposition home or self-care (01) ==
LOC: ER 21:22
DX: R07.89 Other chest pain (principal); E11.65 Type 2 diabetes mellitus with hyperglycemia; I10 Essential (primary) hypertension; Z86.73 Personal history of transient ischemic attack (TIA), and cerebral infarction without residual deficits; Z86.711 Personal history of pulmonary embolism; Z79.01 Long term (current) use of anticoagulants; Z88.8 Allergy status to other drugs, medicaments and biological substances; Z91.041 Radiographic dye allergy status; Z79.82 Long term (current) use of aspirin; Z79.84 Long term (current) use of oral hypoglycemic drugs
CPT/HCPCS: 36415; 71045; 71275; 80053; 81003; 82962; 83880; 84484; 85025; 93005; 96361; 96374; 96375; 96376; 99285; J1200; J2270; J2930; J7030; Q9967

== ENCOUNTER 2020-02-14 04:01 | Emergency (ER) | payer OTHER ==
[~2020-02-14] VITALS: Ht 160 cm; Wt 76.2 kg
[2020-02-14] MEDS ORDERED: HYDROCODONE/ACETAMINOPHEN 5/325MG TABLET PO ONE (05:15)
[2020-02-14 05:20] LABS: BASOPHILS % 0.3 % (0.0-2.0); HEMATOCRIT. 35.2 % (36.0-48.0); HEMOGLOBIN. 11.6 g/dL (12.0-16.0); MEAN CORPUSCULAR HEMOGLOBIN 24.6 pg (28.0-32.0); MEAN CORPUSCULAR VOLUME 74.9 fL (81.0-99.0); MEAN PLATELET VOLUME 7.9 fl (7.4-10.4); MONOCYTES % 0.9 % (2.0-8.0); NEUTROPHILS % 85.8 % (40.0-76.0); PLATELET 354 x1000/uL (130-400); RED CELL DISTRIBUTION WIDTH 17.9 % (11.6-14.6)
[2020-02-14 05:25] LABS: CHLORIDE 106 mEq/L (98-107)
[2020-02-14 05:39] VITALS: BP 114/65
[2020-02-14] MEDS ORDERED: TRAMADOL 50MG TABLET PO ONE (05:45)
== END 2020-02-14 06:20 | disposition home or self-care (01) ==
LOC: ER 04:29
DX: R07.9 Chest pain, unspecified (principal); E11.9 Type 2 diabetes mellitus without complications; I10 Essential (primary) hypertension; G35 Multiple sclerosis; Z88.6 Allergy status to analgesic agent; Z79.82 Long term (current) use of aspirin; Z86.73 Personal history of transient ischemic attack (TIA), and cerebral infarction without residual deficits; Z86.711 Personal history of pulmonary embolism; Z91.041 Radiographic dye allergy status
CPT/HCPCS: 36415; 71045; 80053; 84484; 85025; 93005; 99285

== ENCOUNTER 2020-03-07 13:39 | Emergency (ER) | payer OTHER ==
[~2020-03-07] VITALS: Ht 157.5 cm; Wt 77.0 kg
[2020-03-07 13:41] VITALS: BP 157/74
== END 2020-03-07 19:07 | disposition left against medical advice (07) ==
LOC: ER 13:39
DX: R07.89 Other chest pain (principal); Z53.21 Procedure and treatment not carried out due to patient leaving prior to being seen by health care provider
CPT/HCPCS: 93005

== ENCOUNTER 2020-03-14 20:58 | Emergency (ER) | payer MEDICAID, OTHER ==
[~2020-03-14] VITALS: Ht 157.5 cm; Wt 84.0 kg
[2020-03-14] MEDS ORDERED: METHYLPREDNISOLONE SOD SUCC 500 MG in DEXT 5% WATER 100 ML IV ONE (22:15)
[2020-03-14] MEDS ORDERED: MORPHINE SULFATE 4 MG/ML CPJ (NOT FOR IM USE) IV STA (22:20)
[2020-03-14] MEDS ORDERED: ONDANSETRON HCL 4MG/2ML INJ IV STA (22:20)
[2020-03-14 22:22] LABS: BASOPHILS % 0.6 % (0.0-2.0); EOSINOPHILS % 0.1 % (0.0-5.0); HEMOGLOBIN. 10.4 g/dL (12.0-16.0); LYMPHOCYTES % 11.5 % (20.0-50.0); MEAN CORPUSCULAR HEMOGLOBIN 23.9 pg (28.0-32.0); MEAN CORPUSCULAR VOLUME 73.1 fL (81.0-99.0); MEAN PLATELET VOLUME 7.6 fl (7.4-10.4); MONOCYTES % 3.1 % (2.0-8.0); NEUTROPHILS % 84.7 % (40.0-76.0); PLATELET 412 x1000/uL (130-400); RED BLOOD CELL COUNT 4.38 mill/uL (4.2-5.4); RED CELL DISTRIBUTION WIDTH 17.9 % (11.6-14.6)
[2020-03-14 22:29] LABS: HCG SCREEN NEGATIVE
[2020-03-14] MEDS ORDERED: ASPIRIN 81MG TABLET PO ONE (22:30)
[2020-03-14 22:31] LABS: PARTIAL THROMBOPLASTIN TIME 25.4 sec (23.4-31.0); PROTHROMBIN TIME 10.1 sec (9.6-11.0)
[2020-03-14 22:37] LABS: CHLORIDE 105 mEq/L (98-107)
[2020-03-14 22:43] LABS: ETHANOL BLOOD < 10 mg/dL
[2020-03-14 22:45] LABS: LDL CHOLESTEROL 117 mg/dL (5-100)
[2020-03-14] MEDS: NITROGLYCERIN 0.4MG TABLET SL SL PRN (22:51)
[2020-03-14 22:52] LABS: CLARITY URINE CLEAR (CLEAR); COLOR URINE YELLOW (YELLOW); KETONES URINE 1+ (NEGATIVE); LEUKOCYTE ESTERASE URINE NEGATIVE (NEGATIVE); NITRITE URINE NEGATIVE (NEGATIVE); OCCULT BLOOD URINE NEGATIVE (NEGATIVE); PH URINE 5.5 (4.5-8.0); PROTEIN URINE NEGATIVE (NEGATIVE); SPECIFIC GRAVITY URINE 1.014 (1.005-1.030); UROBILINOGEN URINE 0.2 E.U./dL (0.2-1.0)
[2020-03-14 23:17] LABS: *AMPHETAMINES SCREEN URINE NEGATIVE (NEGATIVE); *BARBITURATES SCREEN URINE NEGATIVE (NEGATIVE); *COCAINE SCREEN URINE NEGATIVE (NEGATIVE)
[2020-03-14 23:18] LABS: *BENZODIAZEPINES SCREEN URINE NEGATIVE (NEGATIVE); CANNABINOID URINE SCREEN NEGATIVE (NEGATIVE); METHADONE URINE SCREEN NEGATIVE (NEGATIVE); OPIATES URINE SCREEN NEGATIVE (NEGATIVE); PHENCYCLIDINE URINE SCREEN NEGATIVE (NEGATIVE)
[2020-03-14] MEDS ORDERED: ENOXAPARIN 80MG/0.8ML SYR SUBCUT ONE (23:30)
[2020-03-15] MEDS: NITROGLYCERIN 0.4MG TABLET SL SL PRN (05:42)
[2020-03-15 05:45] VITALS: BP 128/74
== END 2020-03-15 06:10 | disposition left against medical advice (07) ==
LOC: ER 20:58 → EDBEDREQDT 03-15 00:48 → EDBEDREQTM 03-15 00:48 → EDBEDREQ 03-15 00:48 → ER 03-15 06:10 → CANBEDREQ 03-15 16:09
DX: R07.89 Other chest pain (principal); R53.1 Weakness; R29.810 Facial weakness; G35 Multiple sclerosis; E11.9 Type 2 diabetes mellitus without complications; E78.00 Pure hypercholesterolemia, unspecified; I10 Essential (primary) hypertension; Z86.73 Personal history of transient ischemic attack (TIA), and cerebral infarction without residual deficits; Z98.890 Other specified postprocedural states; Z79.899 Other long term (current) drug therapy; Z79.82 Long term (current) use of aspirin; Z91.041 Radiographic dye allergy status
CPT/HCPCS: 36415; 70450; 71045; 78582; 80053; 80305; 80320; 81003; 82962; 83721; 83880; 84484; 84703; 85025; 85610; 85730; 93005; 93970; 96365; 96372; 99285; A9540; A9558; J1650; J2270; J2405; J2930; J7060; Z7610; G0480

== ENCOUNTER 2020-04-13 18:42 | Emergency (ER) | payer MEDICAID ==
[~2020-04-13] VITALS: Ht 154.9 cm; Wt 82.6 kg
[2020-04-13] MEDS ORDERED: TRAMADOL HCL/ACETAMINOPHEN 37.5/325MG TABLET PO ONE (19:45)
[2020-04-13] MEDS ORDERED: LORAZEPAM 0.5MG TABLET PO SCH (20:00)
[2020-04-13 20:14] LABS: CHLORIDE 103 mEq/L (98-107)
[2020-04-13 20:19] LABS: BASOPHILS % 0.3 % (0.0-2.0); EOSINOPHILS % 0.3 % (0.0-5.0); HEMATOCRIT. 31.3 % (36.0-48.0); HEMOGLOBIN. 10.2 g/dL (12.0-16.0); LYMPHOCYTES % 34.7 % (20.0-50.0); MEAN CORPUSCULAR HEMOGLOBIN 23.4 pg (28.0-32.0); MEAN CORPUSCULAR VOLUME 72.2 fL (81.0-99.0); MEAN PLATELET VOLUME 7.4 fl (7.4-10.4); MONOCYTES % 11.2 % (2.0-8.0); NEUTROPHILS % 53.5 % (40.0-76.0); PLATELET 395 x1000/uL (130-400); RED BLOOD CELL COUNT 4.34 mill/uL (4.2-5.4); RED CELL DISTRIBUTION WIDTH 17.1 % (11.6-14.6)
[2020-04-13 20:30] VITALS: BP 115/72
== END 2020-04-13 20:36 | disposition left against medical advice (07) ==
LOC: ER 18:42
DX: R07.89 Other chest pain (principal); F41.9 Anxiety disorder, unspecified; I10 Essential (primary) hypertension; Z91.041 Radiographic dye allergy status; Z88.6 Allergy status to analgesic agent; Z79.899 Other long term (current) drug therapy; Z79.82 Long term (current) use of aspirin; Z98.51 Tubal ligation status
CPT/HCPCS: 36415; 71045; 80053; 82962; 83880; 84484; 85025; 93005; 99285